=== PATIENT | female | born 1960 | race Two or more races ===

== ENCOUNTER → 2017-02-09 | Outpatient (CLI) | payer MEDICARE, OTHER ==
[2017-02-09 11:05] LABS: CH 29.3; CHCM 31.7; HCT 48.8 % (34.0-46.0); HDW 2.73; MCH 28.6 pg (25.0-35.0); MCHC 30.8 g/dL (31.0-37.0); Mean Platelet Volume 8.6; RBC 5.24 m/uL (3.80-5.40); RDW 13.7 % (11.5-15.5)
[2017-02-09 11:19] LABS: ALT 30 U/L (9-52); AST 27 U/L (14-36); Alkaline Phosphatase 162 U/L (38-126); Anion Gap 12 mmol/L; Blood Urea Nitrogen 15 mg/dL (7-17); Calcium 10.2 mg/dL (8.4-10.2); Carbon Dioxide 19 mmol/L (22-30); Chloride 111 mmol/L (98-107); Cholesterol 186 mg/dL (<200); Glucose 83 mg/dL (74-99); HDL Cholesterol 49 mg/dL (40-60); Non-African American GFR(MDRD) >60 (>60 ml/min/1.73 sqM); Potassium 5.4 mmol/L (3.5-5.1); Sodium 142 mmol/L (137-145); Total Bilirubin 0.5 mg/dL (0.2-1.3); Total Protein 7.8 g/dL (6.3-8.2); Triglycerides 103 mg/dL (<150)
== END | disposition home or self-care (01) ==
LOC: LABWHC1 10:47
PROVIDERS: ATTEND Nurse Practitioner Women's Health
DX: E03.9 Hypothyroidism, unspecified (principal)
CPT/HCPCS: 36415; 80053; 80061; 84443; 85027

== ENCOUNTER → 2017-12-29 | Outpatient (CLI) | payer MEDICARE, OTHER ==
--- NOTE | 2017-12-29 12:49 | US ---
EXAMINATION TYPE: US venous doppler duplex LE RT DATE OF EXAM: 12/29/2017 12:10 PM COMPARISON: NONE CLINICAL HISTORY: I80.9 Phlebitis and thrombophlebitis. SIDE PERFORMED: Right TECHNIQUE: The lower extremity deep venous system is examined utilizing real time linear array sonog maggi with graded compression, doppler sonography and color-flow sonography. VESSELS IMAGED: External Iliac Vein (EIV) Common Femoral Vein Deep Femoral Vein Greater Saphenous Vein * Femoral Vein Popliteal Vein Proximal Calf Veins (* superficial vessels) Right Leg: Negative for DVT IMPRESSION: 1. Right lower extremities negative for deep venous thrombosis.
== END | disposition home or self-care (01) ==
LOC: RADUSWWP 11:11
PROVIDERS: ATTEND Orthopaedic Surgery
DX: I80.9 Phlebitis and thrombophlebitis of unspecified site (principal)

== ENCOUNTER 2018-01-08 10:36 | Day surgery (SDC) | payer MEDICARE, OTHER ==
[2018-01-06 16:16] VITALS: BMI 28.0
[~2018-01-08 10:36] MED LIST: DEXAMETHASONE SOD PHOSPHATE 10 MG/ML 1 ML VIAL IV ONE; LACTATED RINGERS 1,000 ML IV SCH; MIDAZOLAM 2 MG/2 ML VIAL IV PRN; ONDANSETRON 4 MG/2 ML VIAL IVP ONE; SCOPOLAMINE 1.5MG/72HR PATCH TRANSDERM ONE; ceFAZolin IN SWFI 2 GM/20 ML SYRINGE IVP ONE
[2018-01-08] MEDS ORDERED: LIDOCAINE 1% 20 ML VIAL (10MG/ML) FOR IV START INTRADERMA ONE (11:21)
[2018-01-08] MEDS ORDERED: PROPOFOL 10 MG/ML 20 ML VIAL IV ONE (12:13)
[2018-01-08] MEDS ORDERED: fentaNYL (PF) 50 MCG/ML 2 ML AMP ONE (12:13)
[2018-01-08] MEDS ORDERED: LIDOCAINE 1% INJ 10MG/ML (20 ML MDV) ONE (12:13)
[2018-01-08] MEDS ORDERED: GLYCOPYRROLATE 0.2 MG/ML 2 ML VIAL ONE (12:13)
[2018-01-08] MEDS ORDERED: PHENYLEPHRINE-0.9% NACL SYG 1 MG/10 ML SYRINGE ONE (12:13)
[2018-01-08] MEDS ORDERED: MIDAZOLAM 2 MG/2 ML VIAL ONE (12:13)
[2018-01-08] MEDS ORDERED: SUCCINYLCHOLINE CHLORIDE 100 MG/5 ML SYR IV ONE (12:13)
[2018-01-08] MEDS ORDERED: SODIUM CHLORIDE 0.9% 500 ML IV ONE (13:31)
[2018-01-08] MEDS: fentaNYL (PF) 50 MCG/ML 2 ML AMP IV PRN ×2 (14:05→14:36)
--- NOTE | 2018-01-08 14:12 | P.OP ---
Date of Procedure: 01/08/18 Preoperative Diagnosis: 1. 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 History of prior CVA 3. History of prior cigarette smoking Postoperative Diagnosis: Same Procedure(s) Performed: 1. Modified Mills procedure left foot (hallux IP fusion and extensor hallucis longus transfer to the first metatarsal) Anesthesia: IRWIN Surgeon: Kameron Montemayor Emergency Preparedness Coordinator #1: Jordi Shepherd Estimated Blood Loss (ml): 5 IV fluids (ml): 950 Pathology: none sent Condition: stable Disposition: PACU Indications for Procedure: The patient is a very pleasant 57-year-old female with a medical history significant for prior stroke. She developed pain and deformity in her left foot. She had flexible clawing deformities in her hallux and lesser toes. She previously underwent [place] talar flexor to extensor tendon transfers of her second, third, and fourth toes. She did well following this and had significant improvement in her discomfort. She was able to quit smoking and requested surgery on her hallux. She had a flexible extensor clawing deformity of the hallux that made shoe wear difficult. She requested surgery. My recommendation for surgery included a modified Mills procedure which included a hallux IP fusion and extensor hallucis longus transfer to the first metatarsal. We discussed the potential risks and complications of surgery including but not limited to risk of anesthesia, superficial infection, deep infection, delayed wound healing, damage to local blood vessels or nerves, nonunion of the fusion site, malunion of the fusion site, systematic hardware, recurrent deformity, under correction of deformity, overcorrection of deformity, chronic pain, chronic swelling, DVT, PE, risk of generalized to satisfaction with surgery, need for further surgery, and possibly loss of life or limb. The patient voiced her understanding of this and provided her verbal and written consent to go forward with surgery. Description of Procedure: The patient was identified and prepped with holding and the correct left leg was marked with my initials. IV the consent form with the patient and her family. All their questions were answered. The patient was then brought back to the operating room by anesthesia. She was positioned on the OR table where a general anesthetic and preoperative antibiotics were administered. A tourniquet was applied and the proximal aspect of the left leg. A bump was placed under the left leg internally rotating the leg to neutral. The left leg was then prepped and draped in standard sterile fashion. Prior to starting surgery timeout was performed identifying the correct patient, operative extremity, and procedure. The patient's leg was then elevated, exsanguinated with an Esmarch bandage, and the tourniquet was inflated to 250 mmHg. Next I began by outlining an incision over the hallux. A transverse limb was marked out just distal to the hallux IP joint and a longitudinal limb was marked out along the dorsal lateral aspect of the proximal phalanx and distal first metatarsal. Skin incision was made with 15 blade scalpel. Full thickness flap was raised down to the level of the EHL tendon. The EHL tendon was sharply released off of the distal phalanx. The hallux IP joint was then exposed. Using a microsagittal saw a small amount of bone was removed from the proximal and distal phalanx. Both surfaces appeared to be flat allowing a straight fusion. A 3.5 mm drill bit was used to create a path from the base of the distal phalanx out the tip of the toe. A stab incision was made through the skin distally. The toe was held in a reduced position and a 2.5 mm drill bit was used to drill through the tip of the toe, through the previously made drill hole and into the proximal phalanx. A depth gauge was used and then a partially threaded 4.0 mm screw was placed across the fusion site generating excellent compression. A peripherally placed 0.0625 K wire was placed across the joint to provide 2 points of fixation to prevent rotation around the single screw. Clinically the toe appeared straight. Dissection was then carried proximally to the distal first metatarsal shaft. A 2.5 mm drill bit was used to create a drill hole across the distal first metatarsal. The EHL tendon was grasped with a grasping stitch and passed from lateral to medial through the previously made drill hole. Using 3-0 FiberWire the EHL tendon was sutured back onto itself. Final fluoroscopic images were taken. The wound was copiously irrigated. The deep subcutaneous layer was closed with 3-0 Monocryl. The skin was closed using 3-0 nylon horizontal mattress stitches. The tourniquet was let down with a total tourniquet time of 49 minutes. I verified that all instrument, sponge, and sharp counts were correct. A sterile dressing consisting of Betadine soaked Adaptic, 4 x 4, and web roll was applied. A well- padded bulky Mills type splint was placed with the ankle in neutral. The patient was awoken from her anesthetic, transferred from the OR table to the [facility], and brought to PACU having the procedure well. Plan: The patient is going to be nonweightbearing for 2 weeks to allow her incision and fusion to begin healing. She can discharge home as an outpatient. She will follow-up in 2 weeks for x-rays out of the splint, wound check, and transition to a tall boot.
[2018-01-08] MEDS ORDERED: LACTATED RINGERS 1,000 ML IV ONE ×2 (14:23)
[2018-01-08 14:28] VITALS: TEMP 97.8
[2018-01-08] MEDS ORDERED: HYDROcodone/APAP 10-325MG 1 EACH TAB PO ONE (15:29)
--- NOTE | 2018-01-08 15:49 | XR ---
Limited left toe HISTORY: Left great toe fusion 3 Intraoperative C-arm images document the procedure
--- NOTE | 2018-01-08 15:50 | FL ---
Fluoroscopy HISTORY: Great toe fusion 41 seconds fluoroscopy time supplied to the referring clinician. 3 intraoperative C-arm images docum ent the procedure. See dictated report from orthopedic surgery.
[2018-01-08 17:04] VITALS: BP 154/84; PULSE 77; RESP 16
== END 2018-01-08 17:10 | disposition home or self-care (01) ==
LOC: OR 10:36
PROVIDERS: ATTEND Orthopaedic Surgery
DX: M20.5X2 Other deformities of toe(s) (acquired), left foot (principal); M20.22 Hallux rigidus, left foot; I69.354 Hemiplegia and hemiparesis following cerebral infarction affecting left non-dominant side; Z87.891 Personal history of nicotine dependence; M20.42 Other hammer toe(s) (acquired), left foot; G46.4 Cerebellar stroke syndrome; H40.9 Unspecified glaucoma; G43.909 Migraine, unspecified, not intractable, without status migrainosus; K21.9 Gastro-esophageal reflux disease without esophagitis; M19.90 Unspecified osteoarthritis, unspecified site; R42 Dizziness and giddiness; Z88.1 Allergy status to other antibiotic agents; Z79.899 Other long term (current) drug therapy
CPT/HCPCS: 73660; 28760; C1713; J2250; J1100; J2405; J2001; J3010; J2370; J0330; J2704; J0690

== ENCOUNTER → 2018-12-13 | Outpatient (CLI) | payer MEDICARE, OTHER ==
[2018-12-13 08:18] LABS: Basophils # (A) 0.1 k/uL (0-0.2); Basophils % (A) 1 %; Eosinophils # (A) 0.3 k/uL (0-0.7); Eosinophils % (A) 5 %; HCT 45.7 % (34.0-46.0); HGB 14.6 gm/dL (11.4-16.0); Lymphocytes # (A) 2.1 k/uL (1.0-4.8); Lymphocytes % (A) 32 %; MCH 29.4 pg (25.0-35.0); MCV 91.9 fL (80.0-100.0); Mean Platelet Volume 9.2; Monocytes # (A) 0.3 k/uL (0-1.0); Monocytes % (A) 5 %; Neutrophils # (A) 3.6 k/uL (1.3-7.7); Neutrophils % (A) 56 %; Platelet Count 194 k/uL (150-450); RBC 4.97 m/uL (3.80-5.40); RDW 13.9 % (11.5-15.5); WBC 6.4 k/uL (3.8-10.6)
[2018-12-13 11:22] LABS: Albumin 4.1 g/dL (3.80-4.90); Albumin/Globulin Ratio 1.86 (1.60-3.17); Anion Gap 6.8 mmol/L (4.00-12.00); Calcium 9.4 mg/dL (8.7-10.3); Carbon Dioxide 23.2 mmol/L (21.6-31.8); Globulin 2.2 g/dL (1.6-3.3); Potassium 4.6 mmol/L (3.5-5.5); Total Bilirubin 0.3 mg/dL (0.3-1.2); Total Protein 6.3 g/dL (6.2-8.2)
[2018-12-14 04:23] LABS: Hemoglobin A1C 5.1 % (4.0-6.0)
== END | disposition home or self-care (01) ==
LOC: LABWHC1 07:43
PROVIDERS: ATTEND Family Medicine
DX: Z00.00 Encounter for general adult medical examination without abnormal findings (principal); K21.9 Gastro-esophageal reflux disease without esophagitis; E55.9 Vitamin D deficiency, unspecified; E03.9 Hypothyroidism, unspecified; R82.90 Unspecified abnormal findings in urine; R73.03 Prediabetes
CPT/HCPCS: 36415; 80053; 80061; 82306; 83036; 84439; 84443; 85025

== ENCOUNTER → 2019-06-28 | Outpatient (CLI) | payer MEDICARE, OTHER ==
[2019-06-28 12:51] LABS: ALT 32 U/L (9-52); AST 25 U/L (14-36); African American GFR (CKD) >90 (>60 ml/min/1.73 sqM); Albumin 4.3 g/dL (3.5-5.0); Alkaline Phosphatase 183 U/L (38-126); Anion Gap 8 mmol/L; Blood Urea Nitrogen 13 mg/dL (7-17); Calcium 10.4 mg/dL (8.4-10.2); Carbon Dioxide 26 mmol/L (22-30); Chloride 109 mmol/L (98-107); Glucose 88 mg/dL (74-99); Sodium 143 mmol/L (137-145); Total Bilirubin 0.4 mg/dL (0.2-1.3); Total Protein 7.2 g/dL (6.3-8.2)
[2019-06-28 12:53] LABS: INR 0.9 (<1.2); Partial Thromboplastin Time 25.7 sec (22.0-30.0); Prothrombin Time 9.7 sec (9.0-12.0)
[2019-06-28 13:12] LABS: HCT 49.5 % (34.0-46.0); MCH 28.9 pg (25.0-35.0); MCHC 32.4 g/dL (31.0-37.0); MCV 89.1 fL (80.0-100.0); Mean Platelet Volume 9.6; Platelet Count 213 k/uL (150-450); RBC 5.55 m/uL (3.80-5.40); RDW 15.1 % (11.5-15.5); WBC 5.6 k/uL (3.8-10.6)
[2019-06-28 15:44] LABS: Appearance,Urine Clear (Clear); Bilirubin,Urine Negative (Negative); Blood,Urine Negative (Negative); Color,Urine Yellow; Glucose,Urine (UA) Negative (Negative); Ketones,Urine Negative (Negative); Leukocyte Esterase,Urine Moderate (Negative); Mucus,Urine Rare /hpf; Nitrite,Urine Negative (Negative); PH, Urine 5.5 (5.0-8.0); Protein,Urine Negative (Negative); RBC,Urine 1 /hpf (0-5); Specific Gravity,Urine 1.018 (1.001-1.035); Squamous Epithelial Cell,Urine 1 /hpf (0-4); Urobilinogen,Urine <2.0 mg/dL (<2.0); WBC,Urine 3 /hpf (0-5)
== END | disposition home or self-care (01) ==
LOC: LABPAT 11:55
PROVIDERS: ATTEND Orthopaedic Surgery
DX: Z01.812 Encounter for preprocedural laboratory examination (principal)
CPT/HCPCS: 36415; 80053; 81001; 85027; 85610; 85730; 87070

== ENCOUNTER 2019-07-11 11:11 | Observation (INO) | payer MEDICARE, OTHER ==
[2019-07-04 10:58] VITALS: BMI 26.5
[~2019-07-11 11:11] MED LIST changes: -DEXAMETHASONE SOD PHOSPHATE 10 MG/ML 1 ML VIAL IV ONE; -LACTATED RINGERS 1,000 ML IV SCH; +LIDOCAINE 1% 20 ML VIAL (10MG/ML) FOR IV START INTRADERMA PRN; +MELOXICAM 7.5 MG TAB PO ONE; -SCOPOLAMINE 1.5MG/72HR PATCH TRANSDERM ONE; +TRANEXAMIC ACID 1,000 MG in SODIUM CHLORIDE 0.9% 100 ML IVPB ONE; -ceFAZolin IN SWFI 2 GM/20 ML SYRINGE IVP ONE; +fentaNYL (PF) 50 MCG/ML 2 ML AMP IV PRN
[2019-07-11] MEDS: LACTATED RINGERS 1,000 ML IV SCH ×4 (11:31→19:54)
[2019-07-11] MEDS ORDERED: ROPIVACAINE 246.25 MG, EPINEPHrine 0.5 MG, KETOROLAC 30 MG, cloNIDine HCL/PF 80 MCG, WA... MISCELLANE ONE ×5 (11:52)
[2019-07-11] MEDS ORDERED: fentaNYL (PF) 50 MCG/ML 2 ML AMP ONE (12:50)
[2019-07-11] MEDS ORDERED: SODIUM CHLORIDE 0.9% 100 ML BAG ONE (12:50)
[2019-07-11] MEDS ORDERED: TRANEXAMIC ACID 1,000 MG/10 ML VIAL ONE (12:50)
[2019-07-11] MEDS ORDERED: PROPOFOL 10 MG/ML 20 ML VIAL IV ONE (12:50)
[2019-07-11] MEDS ORDERED: MIDAZOLAM 2 MG/2 ML VIAL ONE (12:50)
[2019-07-11] MEDS ORDERED: ceFAZolin 3,000 MG in SODIUM CHLORIDE 0.9% IRRIGATIO 3,000 ML IRRIGATION ONE (13:26)
[2019-07-11] MEDS ORDERED: LACTATED RINGERS 1,000 ML IV ONE (14:39)
[2019-07-11] MEDS ORDERED: NALOXONE 0.4 MG/ML 1 ML VIAL IV PRN (15:03)
[2019-07-11] MEDS ORDERED: MAGNESIUM HYDROXIDE 2,400 MG/10 ML CUP PO PRN (15:03)
[2019-07-11] MEDS ORDERED: ONDANSETRON 4 MG/2 ML VIAL IVP PRN (15:03)
[2019-07-11] MEDS ORDERED: NA PHOS,M-B/NA PHOS,DI-BA 133 ML ENEMA RECTAL PRN (15:03)
[2019-07-11] MEDS ORDERED: BISACODYL 10 MG SUPP RECTAL PRN (15:03)
[2019-07-11] MEDS ORDERED: HYDROmorphone 1 MG/ML 1 ML SYRINGE IVP PRN (15:03)
[2019-07-11] MEDS ORDERED: HYDROcodone/APAP 5-325MG 1 EACH TAB PO PRN (15:03)
--- NOTE | 2019-07-11 16:09 | XR ---
EXAMINATION TYPE: XR knee limited RT DATE OF EXAM: 07/11/2019 COMPARISON: NONE HISTORY: 59-year-old female evaluation for postoperative abnormality and alignment TECHNIQUE: 2 views FINDINGS: Images show placement of medial unicompartmental arthroplasty. Both distal femoral and proximal tibia l components of the prosthesis appear well seated without periprosthetic fracture. Alignment grossly anatomic. Extensor mechanism intact. Anterior soft tissue air as well as intra-articular air in joint fluid related to recent operation. IMPRESSION: Uncomplicated postoperative appearance medial unicompartmental arthroplasty.
[2019-07-11] MEDS ORDERED: diphenhydrAMINE 50 MG/ML 1 ML VIAL IVP ONE (16:25)
[2019-07-11] MEDS ORDERED: ROPIVACAINE 0.2%-NS ON-Q PUMP 1,090 MG, EMPTY PAIN BALL 1 EACH MISCELLANE PRN (16:27)
--- NOTE | 2019-07-11 16:29 | P.ANPRN ---
Procedure Note - Anesthesia - Nerve Block Performed Right Adductor Canal Infusion Time Out Performed: Yes Date of Procedure: 07/11/19 Procedure Start Time: 15:54 Location of Patient Procedure: PACU Indication: Acute Post-Operative Pain, Requested by Surgeon Specifically requested for management of pain by DrMoriah: Rubens Redman Sedation Type: Sedate with meaningful contact maintained Preparation: Sterile Prep Position: Supine Catheter Depth at Skin (cm): 7 Catheter: Indwelling Needle Types: Pajunk Needle Gauge: 18 Ultrasound used to visualize needle placement: Yes Ultrasound used to observe medication spread: Yes Injectate: 0.5% Ropivacaine (see comment for volume) (20cc) Blood Aspirated: No Pain Paresthesia on Injection Noted: No Resistance on Injection: Normal Image Stored and Saved: Yes Events: Uneventful and Well Tolerated
[2019-07-11] MEDS: HYDROmorphone 0.5 MG/0.5 ML SYRINGE IVP PRN ×2 (17:54→21:10)
[2019-07-11] MEDS: ASPIRIN 325 MG TAB PO SCH (21:10)
[2019-07-11] MEDS: SENNOSIDES-DOCUSATE SODIUM 1 EACH TAB PO SCH (21:10)
[2019-07-12] MEDS: HYDROmorphone 0.5 MG/0.5 ML SYRINGE IVP PRN ×6 (00:37→21:09)
[2019-07-12] MEDS: LACTATED RINGERS 1,000 ML IV SCH (01:14)
--- NOTE | 2019-07-12 07:13 | P.PN ---
Progress Note - Text 07/12 658am 59-year-old female status post knee replacement by Dr. Redman. Patient has an On-Q pump for postop pain control with the solution running at 8 mL an hour and she has a VAS of 4. Plan to continue On-Q pump infusion
[2019-07-12 07:27] LABS: Basophils % (A) 1 %; Eosinophils # (A) 0.2 k/uL (0-0.7); Eosinophils % (A) 2 %; HGB 13.1 gm/dL (11.4-16.0); Lymphocytes # (A) 1.5 k/uL (1.0-4.8); Lymphocytes % (A) 23 %; MCH 28.9 pg (25.0-35.0); MCHC 32.6 g/dL (31.0-37.0); MCV 88.5 fL (80.0-100.0); Mean Platelet Volume 9.4; Monocytes # (A) 0.4 k/uL (0-1.0); Monocytes % (A) 6 %; Neutrophils # (A) 4.5 k/uL (1.3-7.7); Neutrophils % (A) 66 %; Platelet Count 160 k/uL (150-450); RBC 4.52 m/uL (3.80-5.40); RDW 13.8 % (11.5-15.5); WBC 6.8 k/uL (3.8-10.6)
[2019-07-12] MEDS: HYDROcodone/APAP 5-325MG 1 EACH TAB PO PRN ×3 (07:30→20:07)
[2019-07-12] MEDS: MELOXICAM 7.5 MG TAB PO SCH (07:30)
[2019-07-12] MEDS: ASPIRIN 325 MG TAB PO SCH ×2 (07:30→20:07)
--- NOTE | 2019-07-12 09:56 | P.PN ---
Subjective Progress Note Date: 07/12/19 Principal diagnosis: Degenerative arthritis right knee. Status post total right knee arthroplasty. This is a 59-year-old female who is status post total right knee arthroplasty. She is doing well from orthopedic standpoint. She has no new complaints or concerns today. She states that she would like an extra day for physical therapy and states that her has to work this afternoon and will not be home. Objective - Vital Signs Vital signs: Vital Signs Temp 98.1 F 07/12/19 07:34 Pulse 65 07/12/19 07:34 Resp 16 07/12/19 07:34 BP 168/94 07/12/19 07:34 Pulse Ox 96 07/12/19 07:34 Intake & Output 07/11/19 07/12/19 07/12/19 18:59 06:59 18:59 Intake Total 1351 500 240 Output Total 25 300 200 Balance 1326 200 40 Weight 68.039 kg Intake: IV 1351 Oral 500 240 Output: Urine 300 200 Estimated Blood Loss 25 Other: Voiding Method Bedside Commode Bedpan # Voids 1 1 - Exam This is a pleasant 59-year-old female in no acute distress. She is alert and oriented 3. Exam of the right knee reveals that the dressing is clean, dry and intact. She has full foot and ankle motion without difficulty or pain. No Pain with palpation. Neurovascular status to the lower extremity is intact. - Labs CBC & Chem 7: 07/12/19 06:19 Assessment and Plan (1) Osteoarthritis of right knee Current Visit: Yes Status: Acute Code(s): M17.11 - UNILATERAL PRIMARY OSTEOARTHRITIS, RIGHT KNEE SNOMED Code(s): 284075811922483 (2) Status post total right knee replacement Current Visit: Yes Status: Acute Code(s): Z96.651 - PRESENCE OF RIGHT ARTIFICIAL KNEE JOINT SNOMED Code(s): 6396980943615 (3) At risk for falls Current Visit: No Status: Acute Code(s): Z91.81 - HISTORY OF FALLING SNOMED Code(s): 055198324 Plan: The clinical findings are discussed the patient. With her history of stroke affecting the left side, she is at risk for falls postoperatively. We'll keep her here until tomorrow for further physical therapy and pain management. Plan discharged to home tomorrow if cleared medically.
[2019-07-12] MEDS ORDERED: PANTOPRAZOLE 40 MG TABLET PO PRN (14:01)
[2019-07-12] MEDS ORDERED: MECLIZINE 25 MG TAB PO PRN (14:18)
--- NOTE | 2019-07-12 14:21 | P.CONS ---
History of Present Illness - Reason for Consult Consult date: 07/12/19 Medical management gastroesophageal reflux disease, CAD, hypothyroidism Requesting physician: Rubens Redman - Chief Complaint Right knee osteoarthritis, failed outpatient treatment - History of Present Illness This is a 59-year-old female with history of CVA/TIA, glaucoma, gastroesophageal reflux disease, osteoarthritis, hypothyroidism, brain aneurysm, former smoker, osteoarthritis and multiple medical issues, status post total right knee arthroplasty. Tolerated procedure well. Pain controlled with pain pump intact. Has not yet been out of bed with physical therapy, pending. Patient has residual left-sided weakness secondary to stroke, fall risk. Passing flatus, no bowel movement. Tolerating diet with no nausea vomiting or diarrhea. Denies chest pain, palpitations or shortness of breath. Denies lightheadedness dizziness or focal deficits. Vital signs stable. Maintaining O2 sats in the 90s on room air. Afebrile. Review of Systems ROS Statement: Those systems with pertinent positive or pertinent negative responses have been documented in the HPI. ROS Other: All systems not noted in ROS Statement are negative. Past Medical History Past Medical History: CVA/TIA, Eye Disorder, GERD/Reflux, Myocardial Infarction (TN), Neurologic Disorder, Osteoarthritis (OA), Thyroid Disorder Additional Past Medical History / Comment(s): GLAUCOMA, vertigo @times, frequent headaches, stroke 2013 that affected left side-drags left foot when tired, ?TN- not sure when,says EKG shows she had one @some point, CEREBRAL ANEURYSM, Last Myocardial Infarction Date:: 2007 -UNKNOWN DATE FOR SURE /EKG History of Any Multi-Drug Resistant Organisms: None Reported Past Surgical History: Hysterectomy, Orthopedic Surgery, Tonsillectomy Additional Past Surgical History / Comment(s): Brain aneurysm repair, julian shoulder & knee arthroscopies,colonoscopy,. BILAT LASER EYE SURGERY, LEFT GREAT TOE AND TOE NEXT TO IT, Past Anesthesia/Blood Transfusion Reactions: Previous Problems w/ Anesthesia, Motion Sickness Additional Past Anesthesia/Blood Transfusion Reaction / Comm: woke up gasping for air in recovery after last toe/foot surg-has never had any problems before Past Psychological History: No Psychological Hx Reported Smoking Status: Former smoker Past Alcohol Use History: Rare Additional Past Alcohol Use History / Comment(s): STARTED SMOKING AT AGE 28 , SMOKED pack every 2 weeks QUIT 2017 Past Drug Use History: None Reported - Past Family History Father Family Medical History: Coronary Artery Disease (CAD), Myocardial Infarction (TN) Brother(s) Family Medical History: Coronary Artery Disease (CAD), CVA/TIA Medications and Allergies Home Medications Medication Instructions Recorded Confirmed Type Meclizine [Antivert] 25 mg PO BID PRN 01/06/18 07/11/19 History Omeprazole [PriLOSEC] 20 mg PO AC-BID PRN 01/06/18 07/11/19 History Cholecalciferol [Vitamin D3 (25 1,000 unit PO DAILY 07/04/19 07/11/19 History Mcg = 1000 Iu)] Levothyroxine Sodium [Synthroid] 50 mcg PO DAILY 07/04/19 07/11/19 History Aspirin 325 mg PO BID #60 tab 07/11/19 Rx HYDROcodone/APAP 5-325MG [[place] 1 - 2 each PO Q4-6H PRN #50 tab 07/11/19 Rx 5-325] Sennosides-Docusate Sodium 1 tab PO BID #60 tablet 07/11/19 Rx [Senokot-S] Allergies Allergy/AdvReac Type Severity Reaction Status Date / Time tetracycline [Tetracycline] Allergy Unknown Anaphylaxis Verified 07/11/19 11:22 cortisone Allergy Rash/Hives Verified 07/11/19 11:22 Physical Exam Vitals: Vital Signs Temp Pulse Resp BP Pulse Ox 07/12/19 07:34 98.1 F 65 16 168/94 96 07/12/19 01:16 98.5 F 64 18 126/79 96 07/11/19 19:05 98.1 F 64 18 146/89 100 07/11/19 17:43 97.7 F 62 18 137/68 98 07/11/19 16:45 52 L 16 118/64 96 07/11/19 16:31 55 L 16 128/71 97 07/11/19 16:16 52 L 16 123/65 99 07/11/19 16:01 52 L 16 126/77 98 07/11/19 15:46 53 L 16 124/67 99 07/11/19 15:31 51 L 16 127/66 94 L 07/11/19 15:16 53 L 16 119/68 99 07/11/19 15:01 97.8 F 54 L 15 118/64 99 Intake and Output 07/11/19 07/12/19 07/12/19 22:59 06:59 14:59 Intake Total 800 240 Output Total 300 200 Balance 800 -300 40 Intake: IV 300 Oral 500 240 Output: Urine 300 200 Other: Voiding Method Bedside Commode Bedpan # Voids 1 1 1 PHYSICAL EXAM: VITAL SIGNS: [As above] GENERAL: Sitting up in bed, no acute distress HEENT: Conjunctivae normal. eyes normal. Oral mucosa moist NECK: No JVD. No thyroid enlargement. No LNs CARDIOVASCULAR: S1, S2 regular.. No murmur RESPIRATION: Breath sounds diminished in the bases. No rhonchi or crackles. No bronchial breathing. ABDOMEN: Soft, nontender . No guarding. no masses palpable. No ascites, No hepatosplenomegaly.Bowel sounds heard. LEGS: Decreased edema of right lower extremity, dressing clean dry and intact, positive pulses, PSYCHIATRY: Alert and oriented X3, mood and affect normal. NERVOUS SYSTEM: Cranial N 2-12 grossly normal. Moves all 4 limbs. Residual left-sided weakness secondary to stroke, no gross focal deficits. strength and sensation grossly intact. Skin: no lesions, no rash Lymphatic system. No LN neck axilla. Results CBC & Chem 7: 07/12/19 06:19 Assessment and Plan Assessment: -Right knee osteoarthritis, failed outpatient treatment, status post total right knee replacement -Residual left-sided weakness secondary to stroke, fall risk -Protocol -History of CVA/TIA -Gastroesophageal reflux disease -CAD, history of [place] -Glaucoma -History of nicotine dependence -History of brain aneurysm repair Plan: Continue current medication regime ,monitoring and symptomatic treatment. Home meds have been reviewed and resumed accordingly. GI prophylaxis in place. Pain management/anticoagulation as per orthopedic surgery. Aggressive pulmonary toileting with incentive spirometer reinforced. PT/OT. Discharge planning in progress for tomorrow as per orthopedics. Thank you Dr. Redman for the consult. The impression and plan of care has been dictated as directed. : I performed a history and examination of this patient, discussed the same with the dictator. I agree with the dictator's note ,documented as a scribe. Any additional findings or plans will be noted. Time Taken: 35 min.
[2019-07-12] MEDS: SENNOSIDES-DOCUSATE SODIUM 1 EACH TAB PO SCH (20:07)
[2019-07-13] MEDS: HYDROcodone/APAP 5-325MG 1 EACH TAB PO PRN (02:45)
[2019-07-13] MEDS ORDERED: LEVOTHYROXINE 50 MCG TAB PO SCH (06:30)
[2019-07-13] MEDS: HYDROmorphone 0.5 MG/0.5 ML SYRINGE IVP PRN (07:25)
[2019-07-13] MEDS: MELOXICAM 7.5 MG TAB PO SCH (07:27)
[2019-07-13] MEDS: ASPIRIN 325 MG TAB PO SCH (07:27)
[2019-07-13] MEDS ORDERED: HYDROcodone/APAP 7.5-325MG 1 EACH TAB PO PRN ×2 (07:29)
--- NOTE | 2019-07-13 08:04 | P.DS ---
Providers Date of admission: 07/12/19 04:55 Expected date of discharge: 07/13/19 Attending physician: Rubens Redman Consults: 07/11/19 15:03 Consult Physician Routine Consulting Provider: José Miguel Buckley Reason/Comments: medical management Do you want consulting provider notified?: Yes Primary care physician: José Miguel Buckley - Discharge Diagnosis(es) (1) Osteoarthritis of right knee Current Visit: Yes Status: Acute (2) Status post total right knee replacement Current Visit: Yes Status: Acute (3) At risk for falls Current Visit: No Status: Acute Hospital Course: This is a 59-year-old female who was last seen with complaint of continued right knee pain. The patient has a known history of degenerative arthritis of the right knee and presents to discuss surgical options. After discussion and consideration the patient elects to proceed with total right knee arthroplasty. The patient is seen preoperatively by Dr. Buckley and cleared for surgery. The patient is admitted to [facility] for total right knee arthroplasty. The procedures performed without complication or sequelae. Patient is doing well postoperatively. Vital signs are stable at discharge. Labs are stable at discharge. the patient is ambulating well with walker with minimal assistance. The patient is discharged to home on postop day #2 pending medical clearance. Please see orders and refer to the med rec for accurate list of medications. Plan - Discharge Summary Discharge Rx Participant: Yes New Discharge Prescriptions: New Aspirin 325 mg PO BID #60 tab Sennosides-Docusate Sodium [Senokot-S] 1 tab PO BID #60 tablet HYDROcodone/APAP 7.5-325MG [[place] 7.5-325] 1 - 2 tab PO Q4-6H PRN #50 tab PRN Reason: Pain No Action Omeprazole [PriLOSEC] 20 mg PO AC-BID PRN PRN Reason: Heartburn Meclizine [Antivert] 25 mg PO BID PRN PRN Reason: Vertigo Cholecalciferol [Vitamin D3 (25 Mcg = 1000 Iu)] 1,000 unit PO DAILY Levothyroxine Sodium [Synthroid] 50 mcg PO DAILY Discharge Medication List Meclizine [Antivert] 25 mg PO BID PRN 01/06/18 [History] Omeprazole [PriLOSEC] 20 mg PO AC-BID PRN 01/06/18 [History] Cholecalciferol [Vitamin D3 (25 Mcg = 1000 Iu)] 1,000 unit PO DAILY 07/04/19 [History] Levothyroxine Sodium [Synthroid] 50 mcg PO DAILY 07/04/19 [History] Aspirin 325 mg PO BID #60 tab 07/11/19 [Rx] Sennosides-Docusate Sodium [Senokot-S] 1 tab PO BID #60 tablet 07/11/19 [Rx] HYDROcodone/APAP 7.5-325MG [[place] 7.5-325] 1 - 2 tab PO Q4-6H PRN #50 tab 07/13/19 [Rx] Follow up Appointment(s)/Referral(s): Emma Mayo, RACH [PHYSICIAN STORE CASHIER] - 07/27/19 2:15 pm [facility] [facility], [NON-STAFF] - Activity/Diet/Wound Care/Special Instructions: May bear weight as tolerated with walker. May shower if no drainage 48h post op. Discharge Disposition: HOME WITH HOME HEALTH SERVICES
--- NOTE | 2019-07-13 08:16 | P.PN ---
Progress Note - Text Progress Note Date: 07/13/19 Patient anxious and complaining of pain. Pain severe when pain medications wear off, but tolerable if she takes the [place] and dilaudid. Pt unable to point to where the pain is worse. VSS Right adductor catheter site c/d A/P POD#2 s/p R TKA - Repeat adductor canal and iPACK blocks offered for pain control, but pt declined. - Continue R Adductor catheter and breakthrough meds - increase catheter dose to 12 ml/hr
[2019-07-13 08:50] VITALS: BP 140/79; PULSE 70; RESP 16; TEMP 97.9
--- NOTE | 2019-07-13 14:39 | P.PN ---
Subjective Progress Note Date: 07/13/19 This is a 59-year-old female with history of CVA/TIA, glaucoma, gastroesophageal reflux disease, osteoarthritis, hypothyroidism, brain aneurysm, former smoker, osteoarthritis and multiple medical issues, status post total right knee arthroplasty. Tolerated procedure well. Pain controlled with pain pump intact. Has not yet been out of bed with physical therapy, pending. Patient has residual left-sided weakness secondary to stroke, fall risk. Passing flatus, no bowel movement. Tolerating diet with no nausea vomiting or diarrhea. Denies chest pain, palpitations or shortness of breath. Denies lightheadedness dizziness or focal deficits. Vital signs stable. Maintaining O2 sats in the 90s on room air. Afebrile. 07/13/2019 pain pump discontinued, ambulating with walker to bathroom. Pain bet ter controlled currently. Scheduled to do stairs with PT this morning, pending. Vital signs stable. Denies chest pain, palpitations or shortness of breath. Denies lightheadedness dizziness or focal deficits. Denies nausea vomiting or diarrhea. Passing flatus. Objective - Vital Signs Vital signs: Vital Signs Temp 97.9 F 07/13/19 07:00 Pulse 70 07/13/19 07:00 Resp 16 07/13/19 07:00 BP 140/79 07/13/19 07:00 Pulse Ox 93 L 07/13/19 07:00 Intake & Output 07/12/19 07/13/19 07/13/19 18:59 06:59 18:59 Intake Total 240 250 Output Total 200 Balance 40 250 Intake: Oral 240 250 Output: Urine 200 Other: Voiding Method Bedpan Bedpan # Voids 2 2 - Exam VITAL SIGNS: [As above] GENERAL: Sitting up in bed, no acute distress HEENT: Conjunctivae normal. eyes normal. Oral mucosa moist NECK: No JVD. No thyroid enlargement. No LNs CARDIOVASCULAR: S1, S2 regular.. No murmur RESPIRATION: Breath sounds diminished in the bases. No rhonchi or crackles. No bronchial breathing. ABDOMEN: Soft, nontender . No guarding. no masses palpable. No ascites, No hepatosplenomegaly.Bowel sounds heard. LEGS: Decreased edema of right lower extremity, dressing clean dry and intact, positive pulses, PSYCHIATRY: Alert and oriented X3, mood and affect normal. NERVOUS SYSTEM: Cranial N 2-12 grossly normal. Moves all 4 limbs. Residual lef t-sided weakness secondary to stroke, no gross focal deficits. strength and sensation grossly intact. Skin: no lesions, no rash Lymphatic system. No LN neck axilla. - Labs CBC & Chem 7: 07/12/19 06:19 Assessment and Plan Assessment: -Right knee osteoarthritis, failed outpatient treatment, status post total right knee replacement -Residual left-sided weakness secondary to stroke, fall risk -Protocol -History of CVA/TIA -Gastroesophageal reflux disease -CAD, history of [place] -Glaucoma -History of nicotine dependence -History of brain aneurysm repair Plan: Continue current medication regime ,monitoring and symptomatic treatment. Eager for discharge, getting ready to do stairs with physical therapy. Pain management/anticoagulation as per orthopedic surgery. Aggressive pulmonary toileting with incentive spirometer reinforced. Discharge planning being discussed for today as per her orthopedics. Thank you Dr. Redman for the consult. Follow-up with PCP in one week. The impression and plan of care has been dictated as directed. : I performed a history and examination of this patient, discussed the same with the dictator. I agree with the dictator's note ,documented as a scribe. Any additional findings or plans will be noted. Time Taken: 35 min.
--- NOTE | 2019-07-27 14:27 | P.OP ---
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 AUCTION BLOCK CLERK: Emma House PA-C (assistance with: patient positioning, retraction, exposure, hemostasis, leg positioning, implantation, irrigation, closure, dressing) COMPLICATIONS: None apparent. COMPONENTS IMPLANTED: Jose unicompartmental knee system from [employer] INDICATIONS: Adriana is a 59 year old female with a history of right knee unicompartmental medial osteoarthritis. Conservative management has failed. She has a mild degree of arthritis involving the patellofemoral and lateral compartments. The operation of medial unicompartmental knee replacement has been discussed at length in the office, as well as potential risks and complications. These are inclusive of, but not limited to: bleeding, infection, scarring, discomfort, blood vessel and nerve damage, need for further surgery, failure to relieve symptoms, persistence, recurrence, or worsening of problems, loosening, dislocation, wear, blood clot, pulmonary embolism, , gait dysfunction, stiffness, and other risks as discussed in the office. The patient elects to proceed and the consent form has been signed. PROCEDURE: The patient was taken to the operating room and positioned on the operating room table in the supine position. Anesthesia was initiated. Care was taken to make sure that all pressure points were adequately padded. The operative lower extremity was prepped and draped in the usual aseptic fashion using ChloraPrep. Ioban drape was used for the case and the patient received intravenous antibiotics within one hour of the incision. A pneumotourniquet and leg giordano were used for the case. The limb was exsanguinated with an Esmarch bandage and the tourniquet was inflated to 350 mmHg. Time-out was called confirming the patient's identity, side, procedure and administration of antibiotics and tranexamic acid. The incision was then created over the medial aspect of the knee from approximately the superior pole of the patella down to adjacent to the tibial tubercle. Incision was carried down through skin and into subcutaneous tissues and sharp dissection was carried down to fascia. Hemostasis was obtained using electrocautery. Medial parapatellar arthrotomy was performed from approximately the level of the VMO to just below the tibial surface. Partial fat pad was resected and due to the previous surgeries this patient has had, the fat pad was somewhat scarred. These adhesions within the fat pad were released using cautery. This allowed better patellar mobilization. Excellent visualization of the medial compartment was accomplished. Retractors were placed within the notch and the medial condyle. Careful release of the anterior medial soft tissues from bone was accomplished using sharp dissection. This was carried to but not into the medial collateral ligament. Tibial cut was performed first. The guide for the tibial cut was attached to the patient's lower extremity and the guide was placed against the bone. The boom of the guide was placed parallel to the palpable anterior surface of the tibia and arranged to be in line with the second metatarsal area the cut was planned to be exactly adjacent to the notch region of the medial femoral condyle. It should be noted that the patient's ACL and PCL were intact and no rmal in appearance. The depth of resection was set using the 4 mm guide. The guide was then pinned into position and the cut was created using an oscillating saw along with a reciprocating saw for the sagittal cut. The tibial fragment was then removed and the surface finished. Medial meniscus remnant was removed at this time. Next, the knee was placed into full extension and various spacers were placed in the medial compartment to assess the distance. The size 10 mm spacer was selected and a guide was placed onto this spacer and the guide was held into place on the femur with a headed pin. The distal femoral cut was then created through this guide and the fragment was removed. Flexion and extension gaps were then assessed and found to be satisfactory. The knee was then bent to 90 retractors were placed and the guide for femoral finishing was placed. Femur was finished using this guide. Next, tibia was sized and finished and the trial component was left in place. Femoral trial component was placed, and 10 mm spacer was utilized for trial. Excellent range of motion, stability, and alignment were noted. The trial components were then removed and the femoral and tibial surfaces were pulse lavaged and dried for cementing. Cement was mixed on the back table and applied to the final components. Cement was also pressurized into the bone with finger pressurization technique. Final components were then impacted into place and excess cement was removed. The 10 mm trial spacer was laced during this process. Axial force was applied to the leg during the curing process of the cement. Once the cement had fully hardened, excess cement was further removed, and the knee was assessed for range of motion stability and alignment based on the thickness of the planned polyethylene spacer. The 10 mm spacer was called for and implanted. Final range of motion and stability check was satisfactory. The tourniquet was deflated and hemostasis was obtained with electrocautery, another gram of tranexamic acid, and bone wax. Closure was performed of the fascia using a combination of #2 Ethibond suture as well as a running strata fix suture. Subcu closure was performed with 2-0 Vicryl suture in interrupted fashion followed by strata fix suture in running subcuticular fashion for the skin and Exofin topical dressing. A lightly compressive dressing was applied using Webril and an [place] wrap. The patient was then transferred to stretcher and taken to the recovery room in stable condition. Sponge and needle counts were correct.
== END 2019-07-13 10:01 | disposition home health service (06) ==
LOC: OR 11:11 → 4SSUR 15:01 → OR 07-12 04:10 → 4SSUR 07-12 04:55
PROVIDERS: ADMIT Orthopaedic Surgery; ATTEND Orthopaedic Surgery
DX: M17.11 Unilateral primary osteoarthritis, right knee (principal); M21.169 Varus deformity, not elsewhere classified, unspecified knee; I69.354 Hemiplegia and hemiparesis following cerebral infarction affecting left non-dominant side; I25.10 Atherosclerotic heart disease of native coronary artery without angina pectoris; H40.9 Unspecified glaucoma; G43.909 Migraine, unspecified, not intractable, without status migrainosus; R26.9 Unspecified abnormalities of gait and mobility; I67.9 Cerebrovascular disease, unspecified; K21.9 Gastro-esophageal reflux disease without esophagitis; E03.9 Hypothyroidism, unspecified; Z79.890 Hormone replacement therapy; Z79.899 Other long term (current) drug therapy; Z88.1 Allergy status to other antibiotic agents; Z88.8 Allergy status to other drugs, medicaments and biological substances; Z91.81 History of falling; Z90.710 Acquired absence of both cervix and uterus; Z87.891 Personal history of nicotine dependence; Z86.79 Personal history of other diseases of the circulatory system; I25.2 Old myocardial infarction; Z82.49 Family history of ischemic heart disease and other diseases of the circulatory system; Z82.3 Family history of stroke
CPT/HCPCS: 27446; 97116 ×2; 97161; 97530; 97535; 97166; 64448; 76942; 85025; 88300; 73560; G0378 ×2; C1713; C1776; J2250; J0171; J1200; J0690 ×3; J2405; J3010; J1885; J2795; J2704; J0735; J1170 ×3

== ENCOUNTER → 2020-04-16 | Outpatient (CLI) | payer MEDICARE, OTHER | END | disposition home or self-care (01) | LOC: LABWHC1 10:04 | PROVIDERS: ATTEND Family Medicine | DX: Z20.828 Contact with and (suspected) exposure to other viral communicable diseases (principal) ==

== ENCOUNTER → 2020-07-18 | Outpatient (CLI) | payer MEDICARE, OTHER ==
[2020-07-18 16:18] LABS: Appearance,Urine Cloudy (Clear); Bilirubin,Urine Negative (Negative); Blood,Urine Negative (Negative); Calcium Oxalate Crystals,Urine Many /hpf; Color,Urine Yellow; Glucose,Urine (UA) Negative (Negative); Ketones,Urine Negative (Negative); Leukocyte Esterase,Urine Trace (Negative); Mucus,Urine Many /hpf; Nitrite,Urine Negative (Negative); Protein,Urine Trace (Negative); RBC,Urine 1 /hpf (0-5); Specific Gravity,Urine 1.025 (1.001-1.035); Squamous Epithelial Cell,Urine 2 /hpf (0-4); Urobilinogen,Urine <2.0 mg/dL (<2.0); WBC,Urine 5 /hpf (0-5)
[2020-07-18 16:52] LABS: HGB 15.6 gm/dL (11.4-16.0); MCH 27.8 pg (25.0-35.0); MCHC 31.2 g/dL (31.0-37.0); MCV 89.2 fL (80.0-100.0); Mean Platelet Volume 9.5; Platelet Count 218 k/uL (150-450); WBC 6.8 k/uL (3.8-10.6)
[2020-07-18 16:59] LABS: ALT 25 U/L (4-34); AST 29 U/L (14-36); African American GFR (CKD) >90 (>60 ml/min/1.73 sqM); Albumin 4.3 g/dL (3.5-5.0); Alkaline Phosphatase 179 U/L (38-126); Anion Gap 8 mmol/L; Blood Urea Nitrogen 12 mg/dL (7-17); Calcium 10.1 mg/dL (8.4-10.2); Carbon Dioxide 23 mmol/L (22-30); Chloride 109 mmol/L (98-107); Glucose 90 mg/dL (74-99); Non-African American GFR(CKD) >90 (>60 ml/min/1.73 sqM); Potassium 4.2 mmol/L (3.5-5.1); Sodium 140 mmol/L (137-145); Total Bilirubin 0.3 mg/dL (0.2-1.3); Total Protein 7.2 g/dL (6.3-8.2)
[2020-07-18 17:03] LABS: INR 0.9 (<1.2); Partial Thromboplastin Time 24.3 sec (22.0-30.0); Prothrombin Time 9.6 sec (9.0-12.0)
== END | disposition home or self-care (01) ==
LOC: LABPAT 15:28
PROVIDERS: ATTEND Orthopaedic Surgery
DX: Z01.818 Encounter for other preprocedural examination (principal); Z01.812 Encounter for preprocedural laboratory examination
CPT/HCPCS: 36415; 80053; 81001; 85027; 85610; 85730; 87070; 93005

== ENCOUNTER 2020-07-23 10:50 | Day surgery (SDC) | payer MEDICARE, OTHER ==
[2020-07-17 15:04] VITALS: BMI 27.4
[~2020-07-23 10:50] MED LIST changes: +HYDROmorphone 0.5 MG/0.5 ML SYRINGE IVP PRN; +LIDOCAINE 1% (10MG/ML) FOR IV START INTRADERMA PRN; -LIDOCAINE 1% 20 ML VIAL (10MG/ML) FOR IV START INTRADERMA PRN; -MELOXICAM 7.5 MG TAB PO ONE; +ROPIVACAINE 246.25 MG, EPINEPHrine 0.5 MG, KETOROLAC 30 MG, cloNIDine HCL/PF 80 MCG, WA... MISCELLANE ONE; -fentaNYL (PF) 50 MCG/ML 2 ML AMP IV PRN
[2020-07-23] MEDS: LACTATED RINGERS 1,000 ML IV SCH ×3 (11:43→17:53)
[2020-07-23] MEDS: ACETAMINOPHEN TAB 500 MG TAB PO ONE ×2 (11:50→17:52)
[2020-07-23] MEDS: MELOXICAM 7.5 MG TAB PO ONE ×2 (11:51→17:52)
[2020-07-23] MEDS: ONDANSETRON 4 MG/2 ML VIAL IVP ONE ×2 (11:51→17:52)
[2020-07-23] MEDS ORDERED: MIDAZOLAM 2 MG/2 ML VIAL IVP ONE (12:06)
[2020-07-23] MEDS ORDERED: ROPIVACAINE 0.2%-NS ON-Q PUMP 1,090 MG, EMPTY PAIN BALL 1 EACH MISCELLANE PRN (12:32)
[2020-07-23] MEDS ORDERED: SODIUM CHLORIDE 0.9% 100 ML BAG ONE (12:34)
[2020-07-23] MEDS ORDERED: TRANEXAMIC ACID 1,000 MG/10 ML VIAL ONE (12:34)
[2020-07-23] MEDS ORDERED: fentaNYL (PF) 50 MCG/ML 2 ML AMP ONE (12:34)
[2020-07-23] MEDS ORDERED: MIDAZOLAM 2 MG/2 ML VIAL ONE (12:34)
[2020-07-23] MEDS ORDERED: PROPOFOL 10 MG/ML 20 ML VIAL IV ONE (12:34)
[2020-07-23] MEDS ORDERED: ceFAZolin 3,000 MG in SODIUM CHLORIDE 0.9% IRRIGATIO 3,000 ML IRRIGATION ONE (13:16)
--- NOTE | 2020-07-23 14:16 | P.OP ---
Date of Procedure: 07/23/20 Procedure(s) Performed: PREOPERATIVE DIAGNOSIS: Left knee severe osteoarthritis POSTOPERATIVE DIAGNOSIS: Left knee severe osteoarthritis OPERATION: Left knee cemented total replacement arthroplasty. ANESTHESIA: Spinal ESTIMATED BLOOD LOSS: 50 ml. HUMAN RESOURCES RECEPTIONIST: Emma Mayo PA-C (assistance with: patient positioning, retraction, exposure, hemostasis, leg positioning, implantation, irrigation, closure, dressing) COMPLICATIONS: None apparent. COMPONENTS IMPLANTED: Persona system from [employer] INDICATIONS: Adriana is a 60 year old female with a history of left knee osteoarthritis. Conservative treatment has been tried and has been unsuccessful in controlling symptoms adequately. The operation of knee replacement has been discussed at length in the office, as well as potential risks and complications. These are inclusive of, but not limited to: bleeding, infection, scarring, discomfort, blood vessel and nerve damage, need for further surgery, failure to relieve symptoms, persistence, recurrence, or worsening of problems, loosening, dislocation, wear, blood clot, pulmonary embolism, , gait dysfunction, stiffness, and other risks as discussed in the office. The patient elects to proceed and the consent form has been signed. PROCEDURE: The patient was taken to the operating room and positioned on the operating room table in the supine position. Anesthesia was initiated. Care was taken to make sure that all pressure points were adequately padded. The operative lower extremity was prepped and draped in the usual aseptic fashion using ChloraPrep. Ioban drape was used for the case and the patient received intravenous antibiotics within one hour of the incision. A pneumotourniquet and leg giordano were used for the case. The limb was exsanguinated with an Esmarch bandage and the tourniquet was inflated to 350 mmHg. Time-out was called confirming the patient's identity, side, procedure and administration of antibiotics and tranexamic acid, 1 g IV. The incision was then created midline directly over the knee, carried down through skin and into the subcutaneous tissues and down to fascia. Full thickness subcutaneous medial flap was developed. Medial parapatellar arthrotomy was performed and the interior of the knee was inspected. There was end-stage osteoarthritis of the knee with no significant deformity. The fat pad was excised and proximal medial release on the tibia was completed using meticulous dissection and a curved osteotome. The anterior cruciate ligament was taken down. Note was made of significant attrition of the anterior and significant degenerative appearance of the posterior cruciate ligaments. The exposure was excellent. The knee was flexed 90 degrees and the patella was everted. A spot was chosen on the femur approximately 7 mm anterior to the posterior cruciate ligament insertion and an intramedullary hole was created within the femur. The intramedullary guide was then set to 5 degrees of valgus. The distal cutting block was attached and pinned into position. An appropriate amount of distal femoral resection was set. The oscillating saw was then used to make the distal femoral cut. This cut was confirmed to be flat with the flat end of an osteotome. The retractors were placed around the tibia and the tibial surface was addressed. The angle and depth of resection was adjusted using an extramedullary cutting guide. The guide had a built-in 3 degree posterior slope cut. Once the cutting guide was adjusted appropriately and in line with the axis of the tibia and confirmed to be in good position in relation to the second metatarsal and transmalleolar axis, the tibial cut was then created with protection of the posterior neurovascular structures and the collateral ligaments. The tibial cut surface was removed and sized. Femoral sizing was then accomplished using anterior referencing. Care was taken to analyze the posterior condyles for signs of deficiency or severe wear, and adjustments to the guide were made, as appropriate. 3 degree external rotation pins were placed. The cutting jig for the femur was applied to these pins. The planned cuts were further analyzed prior to performing them with the oscillating saw. No femoral notching was produced. Bone fragments were removed and the cut surfaces were finished, as necessary, with a reciprocating saw. Spacer block technique was then used to confirm that the flexion and extension gaps were equal. Soft tissue releases and adjustment of the tibial and/or femoral cuts were made, as necessary, until the gaps were equal. This included release of the posterior cruciate ligament, which was tight in this patient. The femur was then further finished for a posterior cruciate ligament substituting component. Patellar resurfacing was performed using a reamer. The size of the required patellar component was estimated and the patellar surface was then reamed down to a residual thickness which would recreate the [place] thickness with the component. The exact placement of the patellar component was adjusted for position based on preoperative x-rays and intraoperative findings. Prior to placing trial components, anesthetic solution consisting of ropivicaine with epinephrine, ketorolac, and clonidine was injected carefully and metho dically in a grid pattern using aspiration technique into the soft tissue around the knee circumferentially, starting with the deeper tissues first and progressing to fascia, and then finally the skin/subcutaneous tissue. Particular care was taken when injecting the posterior capsule. The trial components were inserted. The tibial tray was allowed to self center and the patella was noted to track very well. The position of the tibial component was marked and the tibia was then finished for a stemmed tibial component. Cement was mixed on the back table and applied to the final components. Trial components were removed and the cut surfaces of the bone were pulse lavaged thoroughly and dried. Cement was then applied to the tibial surface and pressurized into the surface using finger pressurization technique. The tibial component was then applied and excess cement was removed after it was impacted securely and noted to be flush with the cut surface. In similar fashion, the cement was applied to the cut femoral surface, pressurized in using finger pressurization and the component was impacted into place. Excess cement was removed. The polyethylene spacer was then implanted and locked into position. The patellar component was then applied in similar technique and a patellar clamp was used to hold the patella in place as the cement hardened. Once the cement had fully hardened, the knee was reinspected. Any other cement extrusion was removed and final kinematic testing showed range of motion from 0 to 130 degrees with excellent stability, both medially and laterally and appropriate alignment of the leg. Patellar tracking was excellent. The knee was then thoroughly pulse lavaged with normal saline. The tourniquet was deflated and hemostasis was obtained with electrocautery and IV tranexamic acid, 1 g given prior to inflation of the tourniquet and another gram given at the time of closure. Closure was with #2 Ethibond in the fascia and supplemented with #2 Quill, 2-0 Vicryl suture was used for the subcutaneous tissues and 3-0 Quill for the skin. Dermabond/Steri-Strips were then applied. A lightly compressive dressing was applied using Webril and an Salinas wrap. The p atient was then transferred to stretcher and taken to the recovery room in stable condition. Sponge and needle counts were correct.
[2020-07-23] MEDS ORDERED: NALOXONE 0.4 MG/ML 1 ML VIAL IV PRN (14:41)
[2020-07-23] MEDS ORDERED: TEMAZEPAM 15 MG CAP PO PRN (14:41)
[2020-07-23] MEDS ORDERED: MAGNESIUM HYDROXIDE 2,400 MG/10 ML CUP PO PRN (14:41)
[2020-07-23] MEDS ORDERED: NA PHOS,M-B/NA PHOS,DI-BA 133 ML ENEMA RECTAL PRN (14:41)
[2020-07-23] MEDS ORDERED: bisacodyL 10 MG SUPP RECTAL PRN (14:41)
[2020-07-23] MEDS ORDERED: HYDROcodone/APAP 5-325MG 1 EACH TAB PO PRN (14:41)
[2020-07-23] MEDS ORDERED: HYDROmorphone 0.5 MG/0.5 ML SYRINGE IVP PRN ×2 (14:41)
[2020-07-23] MEDS ORDERED: HYDROmorphone 1 MG/ML 1 ML SYRINGE IVP PRN (14:41)
[2020-07-23] MEDS ORDERED: ONDANSETRON 4 MG/2 ML VIAL IVP PRN (14:41)
[2020-07-23] MEDS ORDERED: hydrOXYzine pamoate 25 MG CAP PO PRN (14:41)
--- NOTE | 2020-07-23 14:48 | P.ANPRN ---
Procedure Note - Anesthesia - Nerve Block Performed Left Adductor Canal Infusion Time Out Performed: Yes Date of Procedure: 07/23/20 Procedure Start Time: 12:06 Procedure Stop Time: 12:18 Location of Patient: PreOp Indication: Acute Post-Operative Pain, Requested by Surgeon Sedation Type: Sedate with meaningful contact maintained Preparation: Sterile Prep, Sterile Dressing Position: Supine Catheter: Indwelling Needle Types: Pajunk Needle Gauge: 21 Ultrasound used to visualize needle placement: Yes Ultrasound used to observe medication spread: Yes Blood Aspirated: No Pain Paresthesia on Injection Noted: No Resistance on Injection: Normal Image Stored and Saved: Yes Events: Uneventful and Well Tolerated (ropi .5% 20cc plus dexamethasone 4mg)
--- NOTE | 2020-07-23 15:15 | XR ---
EXAMINATION TYPE: XR knee limited LT DATE OF EXAM: 07/23/2020 COMPARISON: NONE TECHNIQUE: Two views submitted HISTORY: Post op FINDINGS: There is a prosthetic knee in near anatomic alignment. There is soft tissue edema and emphysema. IMPRESSION: 1. Postoperative change. Appears in near-anatomic alignment
[2020-07-23] MEDS: HYDROcodone/APAP 5-325MG 1 EACH TAB PO PRN (19:48)
[2020-07-23] MEDS: ASPIRIN 325 MG TAB PO SCH (19:49)
[2020-07-23] MEDS ORDERED: SENNOSIDES-DOCUSATE SODIUM 1 EACH TAB PO SCH (21:00)
[2020-07-24] MEDS: HYDROcodone/APAP 5-325MG 1 EACH TAB PO PRN ×2 (02:28→08:42)
[2020-07-24] MEDS: LACTATED RINGERS 1,000 ML IV SCH (03:04)
[2020-07-24 06:27] LABS: Basophils # (A) 0.1 k/uL (0-0.2); Basophils % (A) 1 %; Eosinophils # (A) 0.2 k/uL (0-0.7); Eosinophils % (A) 2 %; HCT 41.8 % (34.0-46.0); HGB 13.4 gm/dL (11.4-16.0); Lymphocytes # (A) 1.5 k/uL (1.0-4.8); Lymphocytes % (A) 19 %; MCH 29.2 pg (25.0-35.0); MCHC 32.1 g/dL (31.0-37.0); Mean Platelet Volume 9.2; Monocytes # (A) 0.4 k/uL (0-1.0); Monocytes % (A) 5 %; Neutrophils # (A) 5.4 k/uL (1.3-7.7); Neutrophils % (A) 72 %; Platelet Count 173 k/uL (150-450); RBC 4.59 m/uL (3.80-5.40); WBC 7.5 k/uL (3.8-10.6)
--- NOTE | 2020-07-24 07:02 | P.PN ---
Progress Note - Text 07/24/20 634am 60-year-old female status post total knee replacement. Patient seen and evaluated this morning for postop pain control, patient has an On-Q pump, solution is running at 8 mL an hour. Patient has a VAS of 1, her pain is mostly located behind the knee. I explained to her that the On-Q pump does not cover the area behind the knee. Plan to continue On-Q pump infusion
[2020-07-24 08:10] VITALS: BP 123/72; PULSE 52; RESP 18; TEMP 98.4
[2020-07-24] MEDS: ASPIRIN 325 MG TAB PO SCH (08:37)
[2020-07-24] MEDS ORDERED: MELOXICAM 7.5 MG TAB PO SCH (09:00)
--- NOTE | 2020-07-24 09:38 | P.DS ---
Providers Expected date of discharge: 07/24/20 Attending physician: Rubens Redman Consults: 07/23/20 14:41 Consult Physician Routine Consulting Provider: José Miguel Buckley Reason/Comments: Medical management Do you want consulting provider notified?: Yes Primary care physician: José Miguel Buckley - Discharge Diagnosis(es) (1) Osteoarthritis of left knee Current Visit: Yes Status: Acute (2) Status post total left knee replacement Current Visit: Yes Status: Acute Hospital Course: This is a 60-year-old female who was last seen with complaint of continued left knee pain. The patient has a known history of degenerative arthritis of the left knee and presents to discuss surgical options. After discussion and consideration the patient elects to proceed with total left knee arthroplasty. The patient is seen preoperatively by Dr. Buckley and cleared for surgery. The patient is admitted to [facility] for total left knee arthroplasty. The procedure is performed without complication or sequelae. He is doing well postoperatively. Vital signs are stable at discharge. Labs are stable at discharge. the patient is ambulating well with walker with minimal assistance. The patient is discharged to home on postop day #1 pending medical clearance. Please see orders and [facility] of [facility]. Plan - Discharge Summary Discharge Rx Participant: Yes New Discharge Prescriptions: New Aspirin [Adult Low Dose Aspirin EC] 81 mg PO BID #1 tablet. Meloxicam [Mobic] 1 - 2 tab PO DAILY PRN #30 tab PRN Reason: Pain Sennosides-Docusate Sodium [Senokot-S] 1 tab PO BID #60 tablet hydrOXYzine pamoate [Vistaril] 25 mg PO Q4-6H #30 capsule HYDROcodone/APAP 10-325MG [[place] 10-325] 1 tab PO Q6H PRN #42 tab PRN Reason: Pain No Action Omeprazole [PriLOSEC] 20 mg PO QAM PRN PRN Reason: Heartburn Levothyroxine Sodium [Synthroid] 50 mcg PO QAM Ciprofloxacin HCl [Cipro] 500 mg PO BID Discharge Medication List Omeprazole [PriLOSEC] 20 mg PO QAM PRN 01/06/18 [History] Levothyroxine Sodium [Synthroid] 50 mcg PO QAM 07/04/19 [History] Ciprofloxacin HCl [Cipro] 500 mg PO BID 07/17/20 [History] Aspirin [Adult Low Dose Aspirin EC] 81 mg PO BID #1 tablet. 07/23/20 [Rx] Meloxicam [Mobic] 1 - 2 tab PO DAILY PRN #30 tab 07/23/20 [Rx] Sennosides-Docusate Sodium [Senokot-S] 1 tab PO BID #60 tablet 07/23/20 [Rx] hydrOXYzine pamoate [Vistaril] 25 mg PO Q4-6H #30 capsule 07/23/20 [Rx] HYDROcodone/APAP 10-325MG [[place] 10-325] 1 tab PO Q6H PRN #42 tab 07/24/20 [Rx] Follow up Appointment(s)/Referral(s): Emma Mayo, RACH [PHYSICIAN INSECTICIDE SUPERVISOR] - 08/08/20 1:45 pm José Miguel Bucklye DO [Primary Care Provider] - 1 Week Activity/Diet/Wound Care/Special Instructions: May bear wt as tolerated w walker. May shower 48h post op. Leave Optifoam dressing intact 7-10 days. Discharge Disposition: HOME WITH HOME HEALTH SERVICES
--- NOTE | 2020-07-24 10:48 | P.PN ---
Subjective Progress Note Date: 07/24/20 This is a 60-year-old female status post left total knee arthroplasty. Tolerated procedure well. Ambulating with PT with walker requiring minimal assistance. Denies lightheadedness, dizziness or focal deficits. Passing flatus. Pain controlled. Denies chest pain, palpitations or shortness of breath. Objective - Vital Signs Vital signs: Vital Signs Temp 98.4 F 07/24/20 07:00 Pulse 52 L 07/24/20 07:00 Resp 18 07/24/20 07:00 BP 123/72 07/24/20 07:00 Pulse Ox 98 07/24/20 07:00 Intake & Output 07/23/20 07/24/20 07/24/20 18:59 06:59 18:59 Intake Total 851 Output Total 50 Balance 801 Weight 68.9 kg Intake: IV 851 Output: Estimated Blood Loss 50 Other: Voiding Method Toilet # Voids 2 - Exam - Exam VITAL SIGNS: As above GENERAL: Sitting up in chair, no acute distress HEENT: Conjunctivae normal. eyes normal. Oral mucosa moist CARDIOVASCULAR: S1, S2 regular.No murmur RESPIRATION: Breath sounds diminished in the bases. No rhonchi or crackles. ABDOMEN: Soft, nontender . No guarding. no masses palpable. Bowel sounds heard. LEGS: Decreased edema of left lower extremity, dressing clean dry and intact, positive pulses, no calf tenderness. NERVOUS SYSTEM: Cranial N 2-12 grossly normal. Moves all 4 limbs. Residual left-sided weakness secondary to stroke, no gross focal deficits. strength and sensation grossly intact. 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 Anticoagulation, pain management as per orthopedic surgery. Maintain aggressive pulmonary toileting with incentive spirometer as previously advised. Medically cleared for discharge .Follow-up with PCP, Dr. José Miguel Buckley in one week. The impression and plan of care has been dictated as directed. : I performed a history and examination of this patient, discussed the same with the dictator. I agree with the dictator's note ,documented as a scribe. Any additional findings or plans will be noted.
== END 2020-07-24 12:07 | disposition home health service (06) ==
LOC: OR 10:50 → 4SSUR 16:29 → OR 07-24 12:07
PROVIDERS: ATTEND Orthopaedic Surgery
DX: M17.12 Unilateral primary osteoarthritis, left knee (principal); E07.9 Disorder of thyroid, unspecified; H40.9 Unspecified glaucoma; G43.909 Migraine, unspecified, not intractable, without status migrainosus; Z87.891 Personal history of nicotine dependence; K30 Functional dyspepsia; Z86.73 Personal history of transient ischemic attack (TIA), and cerebral infarction without residual deficits; Z97.3 Presence of spectacles and contact lenses; Z90.710 Acquired absence of both cervix and uterus; Z79.890 Hormone replacement therapy; Z79.899 Other long term (current) drug therapy; Z88.1 Allergy status to other antibiotic agents; Z88.8 Allergy status to other drugs, medicaments and biological substances
CPT/HCPCS: 97110; 97161; 64448; 76942; 85025; 88300; 73560; 27447; C1713; C1776; J2250; J0171; J0690 ×3; J2405; J1885; J2795 ×2; J0735

== ENCOUNTER → 2021-06-28 | Outpatient (CLI) | payer MEDICARE, OTHER | END | disposition home or self-care (01) | LOC: LABWHC1 16:52 | PROVIDERS: ATTEND Family Medicine | DX: Z20.822 Contact with and (suspected) exposure to COVID-19 (principal) | CPT/HCPCS: U0003; C9803; U0005 ==

== ENCOUNTER → 2022-03-19 | Outpatient (CLI) | payer MEDICARE, OTHER ==
--- NOTE | 2022-03-19 11:56 | XR ---
EXAMINATION TYPE: XR chest 2V DATE OF EXAM: 03/19/2022 COMPARISON: 01/15/2014 TECHNIQUE: PA and lateral views submitted. HISTORY: Cough FINDINGS: The lungs are clear and there is no pneumothorax, pleural effusion, or focal pneumonia. Mild hyperi nflation. Heart size normal. No overt failure. Biapical pleural thickening. IMPRESSION: 1. No acute process. Correlate for COPD.
== END | disposition home or self-care (01) ==
LOC: RADXRMAIN 11:39
PROVIDERS: ATTEND Family Medicine
DX: R05.9 Cough, unspecified (principal)
CPT/HCPCS: 71046

== ENCOUNTER → 2022-04-14 | Outpatient (CLI) | payer MEDICARE, OTHER ==
--- NOTE | 2022-04-14 15:05 | XR ---
EXAMINATION TYPE: XR wrist complete RT DATE OF EXAM: 04/14/2022 COMPARISON: None HISTORY: Pain TECHNIQUE: 4 view right wrist FINDINGS: No acute fractures or dislocations are evident. Soft tissues appear normal. Alignment appea rs preserved. If there is pain at the anatomic snuff box, nuclear medicine bone scan could be performed for additio nal evaluation. Follow up exams can be performed 7-10 days from acute trauma for continued pain. MRI is available for soft tissue evaluation. IMPRESSION: 1. No acute osseous abnormality right wrist
--- NOTE | 2022-04-14 15:09 | XR ---
EXAMINATION TYPE: XR hand complete RT DATE OF EXAM: 04/14/2022 COMPARISON: None HISTORY: Pain, lumps TECHNIQUE: 3 view right hand FINDINGS: No acute fracture or dislocation is evident. Soft tissues are normal. Mild diffuse joint sp neo narrowing of the proximal and distal interphalangeal joint spaces may be present. Structures may be slightly osteopenic. Follow up exams can be performed 7-10 days from acute trauma for continued pain. IMPRESSION: 1. No acute osseous abnormality right hand
== END | disposition home or self-care (01) ==
LOC: RADXRMAIN 13:31
PROVIDERS: ATTEND Family Medicine
DX: R22.31 Localized swelling, mass and lump, right upper limb (principal)

== ENCOUNTER → 2022-06-17 | Outpatient (CLI) | payer MEDICARE, OTHER ==
--- NOTE | 2022-06-18 10:25 | MM ---
Reason for Exam: Screening (asymptomatic). Baseline mammogram. Patient History: Menarche at age 15. First Full-Term at age 19. Left ovary removed at age 42. Right ovary removed at age 42. Hysterectomy at age 42. Postmenopausal. 1996, Bilateral Implants. Paternal grandmother had breast cancer under age 50. Risk Values: Marielos 5 year model risk: 1.0%. NCI Lifetime model risk: 4.6%. Prior Study Comparison: Patient's first Mammogram. No prior studies available for comparison. Tissue Density: The breast tissue is heterogeneously dense. This may lower the sensitivity of mammography. Findings: Analyzed By CAD. Bilateral breast prostheses are present. No suspicious groups of microcalcifications, spiculated or lobular masses, architectural distortion or other secondary signs of malignancy are mammographically apparent. Overall Assessment: Benign, BI-RAD 2 Management: Screening Mammogram of both breasts in 1 year. A negative mammogram report should not preclude additional follow up of suspicious palpable abnormalities. Patient should continue monthly self breast exam. A clinical breast exam by your physician is recommended on an annual basis and results should be correlated with mammographic findings. Electronically signed and approved by: Junior Saldivar D.O. Radiologis
== END | disposition home or self-care (01) ==
LOC: RADMAMWWP 16:03
PROVIDERS: ATTEND Family Medicine
DX: Z12.31 Encounter for screening mammogram for malignant neoplasm of breast (principal); Z78.0 Asymptomatic menopausal state; Z80.3 Family history of malignant neoplasm of breast
CPT/HCPCS: 77063; 77067

== ENCOUNTER 2022-09-12 05:48 | Day surgery (SDC) | payer MEDICARE, OTHER ==
[2022-09-08 09:41] VITALS: BMI 28.5
[2022-09-12] MEDS ORDERED: LACTATED RINGERS 1,000 ML IV SCH (06:01)
[2022-09-12] MEDS ORDERED: ONDANSETRON 4 MG/2 ML VIAL ONE (06:35)
[2022-09-12] MEDS ORDERED: LIDOCAINE 1% (10MG/ML) FOR IV START INTRADERMA ONE (06:42)
[2022-09-12] MEDS ORDERED: DEXAMETHASONE SOD PHOSPHATE 4 MG/ML 1 ML VIAL IV ONE (06:43)
[2022-09-12] MEDS ORDERED: SCOPOLAMINE 1 MG/72 HR PATCH TRANSDERM ONE (06:44)
[2022-09-12] MEDS ORDERED: PROPOFOL 10 MG/ML 20 ML VIAL IV ONE (07:26)
[2022-09-12] MEDS ORDERED: fentaNYL (PF) 50 MCG/ML 2 ML AMP ONE (07:26)
[2022-09-12] MEDS ORDERED: FLUMAZENIL 0.1 MG/ML 5 ML VIAL IVP ONE (07:26)
[2022-09-12] MEDS ORDERED: SUCCINYLCHOLINE CHLORIDE 200 MG/10 ML VIAL IV ONE (07:26)
[2022-09-12] MEDS ORDERED: LIDOCAINE 2% INJ 20 MG/ML (2 ML VIAL) ONE (07:26)
[2022-09-12] MEDS ORDERED: MIDAZOLAM 2 MG/2 ML VIAL ONE (07:26)
[2022-09-12] MEDS ORDERED: ceFAZolin 1,000 MG in SODIUM CHLORIDE 0.9% 1,000 ML IRRIGATION ONE (07:26)
[2022-09-12] MEDS ORDERED: NALOXONE 0.4 MG/ML 1 ML VIAL ONE (07:26)
[2022-09-12] MEDS ORDERED: BUPIVACAINE (PF) 0.25% 30 ML VIAL SQ ONE (07:39)
--- NOTE | 2022-09-12 08:26 | P.OP ---
Date of Procedure: 09/12/22 Preoperative Diagnosis: Deformity of left fourth toe Postoperative Diagnosis: Same Procedure(s) Performed: Extensor tendon transfer left fourth toe Implants: 3.5 x 8 mm interference screw Anesthesia: IRWIN Surgeon: Vicente Vargas Estimated Blood Loss (ml): 0 Pathology: none sent Condition: stable Disposition: PACU Indications for Procedure: Patient has had 2 previous surgeries on the left fourth toe. The first surgery was to address the flexion deformity the proximal interphalangeal joint. Second surgery is due to the fact that the fourth toe was in a plantarflexed position with inability to dorsiflex. Patient complained of pain at the tip of the toe as well as a toe any down and being easily caught on the floor when walking. The decision was made to perform a tendon transfer to try to spend the fourth toe Description of Procedure: The patient was brought into the operating room and placed on table supine position. Timeout was taken to confirm correct patient identifiers, correct laterality of surgery, and correct procedure. When all staff in the room were in agreement with the timeout, the patient was induced placed under general anesthesia. A well-padded tourniquet was placed left ankle. Then 20 mL of 0.25% Marcaine was injected as a left ankle block. The left foot was then prepped and draped usual manner. The left foot was exsanguinated and the tourniquet inflated to 250 mmHg. Attention first directed over the fourth metatarsal phalangeal joint, where a linear incision was made and deepened down to the subcutaneous tissue careful to identify, avoid, and retract any neurovascular structures and cauterize any bleeding vessels. Dissection was continued bluntly down to the soft tissue overlying the capsule of the fourth metatarsal phalangeal joint. A small incision was made over the periosteum at the base of the proximal phalanx and reflected medially and laterally to prep the area for placement of the tendon transfer. A guidewire was then placed to the base of the proximal phalanx under direct fluoroscopic visualization. Then the overdrill was placed and the drill passed through both the dorsal and plantar cortices of the proximal phalanx. Then attention was directed over the proximal phalangeal joint of the left fifth toe, where a small incision was made through the skin and deepened down to the extensor tendon. Extensor tendon was then released. The tendon sheath was also released proximal to the digit into the midfoot. And then further dissection was done through the incision of the fourth digit through the saphenous layer until the tendon could be accessed whic h is then pulled into the incision over the fourth digit. Any further release of the tendon sheath was done to allow for the correct trajectory of the tendon to the fourth digit. Once completed a whipstitch was placed in the distal end of the transfer tendon. Then utilizing a needle the suture was passed through the drill hole and out the plantar surface of the foot. The suture was pulled passed the tendon through the drill hole in the proximal phalanx and then the digit was positioned until there was proper tension of the tendon and that the fourth toe was satisfactorily suspended. Once the desired position was achieved a 3.5 x 8 mm interference screw was inserted and the drill hole and advanced to lock the tendon in place. The rig welder was removed and then the forefoot was loaded to simulate weightbearing. The digit was in a more dorsiflexed position and in line with the remaining digits. The wound is thoroughly irrigated with antibiotic saline. Subcu closure done for Monocryl and skin closure was done with dermal glue. Steri-Strips are placed across incision. A jumpstart dressing and a dry sterile dressing applied to left foot. The tourniquet was released and capillary refill return to all digits on the left foot. The patient tolerated above procedure and anesthesia well. The patient left the operating room to recovery with vital signs stable.
[2022-09-12 08:47] VITALS: TEMP 97
[2022-09-12 09:13] VITALS: RESP 16
[2022-09-12] MEDS ORDERED: HYDROcodone/APAP 7.5-325MG 1 EACH TAB ONE (09:34)
[2022-09-12 09:43] VITALS: BP 132/74; PULSE 63
== END 2022-09-12 10:26 | disposition home or self-care (01) ==
LOC: OR 05:48
PROVIDERS: ATTEND Podiatrist
DX: M20.12 Hallux valgus (acquired), left foot (principal)
CPT/HCPCS: 27690; C1713; J2250; J0330; J1100; J2310; J0690 ×2; J2405; J3010; J2704; J2001

== ENCOUNTER → 2023-01-07 | Outpatient (CLI) | payer MEDICARE, OTHER ==
--- NOTE | 2023-01-07 15:44 | XR ---
EXAMINATION TYPE: XR chest 2V DATE OF EXAM: 01/07/2023 COMPARISON: NONE HISTORY: Shortness of breath TECHNIQUE: Frontal and lateral views of the chest are obtained. FINDINGS: Scattered senescent parenchymal changes noted. Hyperinflation compatible with COPD. No evidence for infiltrate. No evidence for atelectasis. Heart size is stable. Mediastinal structures are stable and grossly unremarkable. No evidence for hilar prominence. Degenerative changes dorsal spine. IMPRESSION: 1. No evidence for acute pulmonary disease.
== END | disposition home or self-care (01) ==
LOC: RADXRMAIN 15:28
PROVIDERS: ATTEND Family Medicine
DX: R07.9 Chest pain, unspecified (principal); R06.02 Shortness of breath
CPT/HCPCS: 71046

== ENCOUNTER 2023-03-27 09:20 | Day surgery (SDC) | payer MEDICARE, OTHER ==
[2023-03-27 09:50] VITALS: RESP 16; TEMP 96.8
[2023-03-27] MEDS ORDERED: LACTATED RINGERS 1,000 ML IV ONE ×2 (09:50→11:54)
[2023-03-27] MEDS ORDERED: ONDANSETRON 4 MG/2 ML VIAL ONE (09:55)
[2023-03-27] MEDS ORDERED: ONDANSETRON 4 MG/2 ML VIAL IVP ONE (09:55)
[2023-03-27] MEDS ORDERED: ePHEDrine 50 MG/ML 1 ML VIAL ONE (11:11)
[2023-03-27] MEDS ORDERED: PROPOFOL 10 MG/ML 20 ML VIAL IV ONE (11:11)
[2023-03-27] MEDS ORDERED: MIDAZOLAM 2 MG/2 ML VIAL ONE (11:11)
[2023-03-27] MEDS ORDERED: fentaNYL (PF) 50 MCG/ML 2 ML AMP ONE (11:11)
[2023-03-27] MEDS ORDERED: LIDOCAINE 2% INJ 20 MG/ML (2 ML VIAL) ONE (11:11)
[2023-03-27] MEDS ORDERED: ceFAZolin 1,000 MG in SODIUM CHLORIDE 0.9% 1,000 ML IRRIGATION ONE (11:13)
[2023-03-27] MEDS ORDERED: BUPIVACAINE (PF) 0.25% 30 ML VIAL SQ ONE (11:21)
--- NOTE | 2023-03-27 12:10 | P.OP ---
Date of Procedure: 03/27/23 Preoperative Diagnosis: Hammertoe fifth digit left foot Postoperative Diagnosis: Same Procedure(s) Performed: Hammertoe correction fifth digit left foot Implants: 2.3 mm x 30 mm screw Anesthesia: IRWIN Surgeon: Vicente Vargas Estimated Blood Loss (ml): 0 Pathology: none sent Condition: stable Disposition: PACU Description of Procedure: The patient was brought into the operating room and placed on table in the supine position. Timeout was taken to confirm correct patient identifiers, correct laterally of surgery, and correct procedure. Once all staff in the room were in agreement the Timeout, the patient was induced and placed under general anesthesia. A well-padded tourniquet was placed on left ankle and then 15 mL of 0.25% Marcaine was injected as a lateral forefoot block. The left foot was then prepped and draped in the usual manner. The left foot was exsanguinated and the tourniquet inflated to 250 mmHg. Attention was directed over the dorsal lateral aspect of the fifth digit over the proximal interphalangeal joint. 2 semi-elliptical converging incisions were made over the proximal interphalangeal joint. The axis of the incisions was oriented distal medial to proximal lateral. The incisions were deepened down to the subcutaneous tissue and then the interposing skin was carefully dissected off of the subcutaneous tissue and removed from the surgical foot. The dorsal capsular and ligamentous structures over the fifth proximal interphalangeal joint were resected along with the collateral ligaments so that the proximal phalangeal head could be accessed area saw was used to remove the head of the proximal phalanx. A Joni was used to remove the articular cartilage from the base of the middle phalanx. The digit was then mobilized and it was noted that it could be rotated back into the rectus position. A guidewire for a 2.3 mm screw was used to create a pilot boat captain hole in the proximal phalanx. Then it was inserted at the base of the middle phalanx and advanced up the distal aspect of the digit. Small portion wire was left in the surgical site which was aligned with the pilot boat captain hole in the proximal phalanx. The digit was reduced and rotated and then the wire advanced to the base of the proximal phalanx. Fluoroscopy confirmed the proper position of the wire both on AP and lateral views. A small stab incision was made through the skin where the pin was inserted at the tip of the toe. Then a 2.3 mm x 30 mm cannulated screw was inserted over the wire and advanced until the head engaged the distal phalanx. There was good compression noted across the arthrodesis site at the proximal interphalangeal joint. Prior to fully tightening the screw, the fifth digit was internally rotated to correct the varus deformity of the digit. Once the digit was in corrected alignment, the screw was fully tightened fixating the toe in position. Fluoroscopy confirmed the proper position of the screw both on AP and lateral views. All wounds were thoroughly irrigated with antibiotic saline. The dorsal skin incision was closed with 3-0 nylon. Nonadherent gauze and a dry sterile dressing applied to the left foot. The tourniquet was released and capillary refill return to all digits on the left foot. Anesthesia was reversed and the patient was taken recovery with vital signs stable.
[2023-03-27 13:10] VITALS: BP 150/88; PULSE 63
[2023-03-27] MEDS ORDERED: HYDROcodone/APAP 7.5-325MG 1 EACH TAB PO ONE (13:11)
[2023-03-27] MEDS ORDERED: HYDROcodone/APAP 7.5-325MG 1 EACH TAB ONE (13:13)
== END 2023-03-27 13:55 | disposition home or self-care (01) ==
LOC: OR 09:20
PROVIDERS: ATTEND Podiatrist
DX: M20.42 Other hammer toe(s) (acquired), left foot (principal); I10 Essential (primary) hypertension; F17.200 Nicotine dependence, unspecified, uncomplicated; E03.9 Hypothyroidism, unspecified; K21.9 Gastro-esophageal reflux disease without esophagitis; Z88.8 Allergy status to other drugs, medicaments and biological substances; Z83.3 Family history of diabetes mellitus; Z79.899 Other long term (current) drug therapy
CPT/HCPCS: 28285; J0690 ×2; J2405

== ENCOUNTER → 2023-09-21 | Outpatient (CLI) | payer MEDICARE, OTHER ==
--- NOTE | 2023-09-21 20:29 | MR ---
EXAMINATION TYPE: MR cervical spine wo con DATE OF EXAM: 09/21/2023 7:29 PM CLINICAL INDICATION:Female, 63 years old with history of [id number] SPONDYLOSIS; PHH, Neck pain, headache s, pain in left shoulder and down arm. COMPARISON: None. TECHNIQUE: Multi planar, multi sequence imaging was performed utilizing: T1-weighted, T2-weighted, an d turbo inversion recovery imaging of the cervical spine. IV Contrast: cc (none if empty) FINDINGS: Alignment: The cervical vertebral bodies have preserved heights. Alignment is within normal limits gi pepito patient positioning. Bones: Scattered osteophytes and disc space narrowing. Multilevel degenerative disc disease is noted and most pronounced at the C5-C7 vertebral levels. Cord: The spinal cord is unremarkable with regards to their signal intensity and morphology. Discs: Multilevel disc desiccation is present. C2-C3: No significant disc pathology. The spinal canal is patent. No neural foraminal stenosis. C3-C4: No significant disc pathology. The spinal canal is patent. Bilateral facet and uncovertebral joint arthropathy are present with mild bilateral neural foraminal stenosis. C4-C5: A disc osteophyte complex is present which minimally narrows the ventral subarachnoid space. Bilateral facet and uncovertebral joint arthropathy are present with mild bilateral neural foraminal stenosis. C5-C6: A disc osteophyte complex is present which minimally narrows the ventral subarachnoid space. Bilateral facet and uncovertebral joint arthropathy are present with mild bilateral neural foraminal stenosis. C6-C7: A disc osteophyte complex is present which minimally narrows the ventral subarachnoid space. Bilateral facet and uncovertebral joint arthropathy are present with moderate bilateral neural chico inal stenosis. C7-T1: No significant disc pathology. The spinal canal is patent. Bilateral facet and uncovertebral joint arthropathy are present with [id number] right and mild left neural foraminal stenosis. Other: None. IMPRESSION: 1. No evidence for disc herniation or significant spinal canal stenosis. 2. Multilevel disc degeneration with associated osteoarthritic changes. Neural foraminal stenosis wor se at C6-C7 with moderate bilateral stenosis.
== END | disposition home or self-care (01) ==
LOC: RADMRIMAIN 18:48
PROVIDERS: ATTEND Physical Medicine & Rehabilitation
DX: M99.71 Connective tissue and disc stenosis of intervertebral foramina of cervical region (principal); M47.812 Spondylosis without myelopathy or radiculopathy, cervical region; M50.322 Other cervical disc degeneration at C5-C6 level; M50.321 Other cervical disc degeneration at C4-C5 level; M50.323 Other cervical disc degeneration at C6-C7 level
CPT/HCPCS: 72141

== ENCOUNTER 2024-07-25 09:01 | Day surgery (SDC) | payer MEDICARE, OTHER ==
[~2024-07-25 09:01] MED LIST changes: -HYDROmorphone 0.5 MG/0.5 ML SYRINGE IVP PRN; -MIDAZOLAM 2 MG/2 ML VIAL IV PRN; -ONDANSETRON 4 MG/2 ML VIAL IVP ONE; -ROPIVACAINE 246.25 MG, EPINEPHrine 0.5 MG, KETOROLAC 30 MG, cloNIDine HCL/PF 80 MCG, WA... MISCELLANE ONE; -TRANEXAMIC ACID 1,000 MG in SODIUM CHLORIDE 0.9% 100 ML IVPB ONE
[2024-07-25 09:26] VITALS: TEMP 97.3
[2024-07-25] MEDS: LACTATED RINGERS 1,000 ML IV SCH (09:40)
[2024-07-25] MEDS ORDERED: PROPOFOL 10 MG/ML 20 ML VIAL IV ONE (09:40)
--- NOTE | 2024-07-25 09:43 | P.GSHP ---
History of Present Illness H&P Date: 07/25/24 Chief Complaint: Gerd This a 64-year-old female who presents today for EGD. S she has had issues with GERD. Past Medical History Past Medical History: CVA/TIA, Eye Disorder, GERD/Reflux, Hypertension, Osteoarthritis (OA), Thyroid Disorder, Vascular Disorder Additional Past Medical History / Comment(s): GLAUCOMA, vertigo @times, frequent headaches, stroke yrs ago that affected left side-drags left foot when tired, brain aneurysm with surgery. Last Myocardial Infarction Date:: unk History of Any Multi-Drug Resistant Organisms: None Reported Past Surgical History: Hysterectomy, Orthopedic Surgery, Tonsillectomy Additional Past Surgical History / Comment(s): Brain aneurysm repair, julian shoulder & knee arthroscopies,colonoscopy, 4 th toe amputated lft foot, left eye cataract removed,. julian. laser eye surg., left side toe surgery Past Anesthesia/Blood Transfusion Reactions: Previous Problems w/ Anesthesia Additional Past Anesthesia/Blood Transfusion Reaction / Comment(s): woke up gasping for air in recovery after last toe/foot surg-has never had any problems before or after. Pt has never received blood. Smoking Status: Former smoker - Past Family History Father Family Medical History: Coronary Artery Disease (CAD), Myocardial Infarction ([place]) Brother(s) Family Medical History: Coronary Artery Disease (CAD), CVA/TIA Medications and Allergies Home Medications Medication Instructions Recorded Confirmed Type Omeprazole [PriLOSEC] 60 mg PO QAM 01/06/18 07/21/24 History Levothyroxine Sodium [Synthroid] 125 mcg PO QAM 07/04/19 07/21/24 History amLODIPine [Norvasc] 5 mg PO QAM 03/26/23 07/21/24 History Allergies Allergy/AdvReac Type Severity Reaction Status Date / Time tetracycline [Tetracycline] Allergy Unknown Anaphylaxis Verified 07/25/24 09:27 cortisone Allergy Rash/Hives Verified 07/25/24 09:27 Surgical - Exam Vital Signs Temp Pulse Resp BP Pulse Ox 97.3 F L 84 16 160/77 98 07/25/24 09:25 07/25/24 09:25 07/25/24 09:25 07/25/24 09:25 07/25/24 09:25 - General well developed, well nourished - Eyes PERRL - ENT normal pinna - Neck no masses - Respiratory normal expansion - Cardiovascular Rhythm: regular - Abdomen Abdomen: soft, non tender Assessment and Plan Assessment: Gerd. Will perform EGD.
--- NOTE | 2024-07-25 10:02 | P.OP ---
Date of Procedure: 07/25/24 Preoperative Diagnosis: Gerd Postoperative Diagnosis: Antral gastritis Hiatal hernia Esophagitis Procedure(s) Performed: EGD Anesthesia: MAC Surgeon: Morgan Wei Pathology: other (Antrum, esophagus) Condition: stable Disposition: PACU Description of Procedure: The patient was placed on the endoscopy table in the lateral position. She received IV sedation. The Gastroflux oropharynx passed in the esophagus and stomach. Scope was placed through the pylorus. The first and second portion of the duodenum appeared normal. The scope was brought back to the antrum this appeared mildly Flaim. A biopsy performed. Scope was retroflexed and there was some retained food seen at the GE junction. There was a small sliding hiatal hernia. The GE junction was at [id number]. The distal esophagus. Inflamed this was biopsied. The proximal esophagus appeared normal. Scope withdrawn the patient.
[2024-07-25 10:29] VITALS: BP 132/83; PULSE 63; RESP 20
== END 2024-07-25 11:05 | disposition home or self-care (01) ==
LOC: ORWHC2ENDO 09:01
PROVIDERS: ATTEND Surgery
DX: K21.9 Gastro-esophageal reflux disease without esophagitis
CPT/HCPCS: 43239; 88305

== ENCOUNTER 2024-08-17 06:17 | Observation (INO) | payer MEDICARE, OTHER ==
[2024-08-16 11:16] VITALS: BMI 32.0
[2024-08-17] MEDS ORDERED: fentaNYL (PF) 50 MCG/ML 2 ML AMP IVP PRN (07:00)
[2024-08-17] MEDS ORDERED: MIDAZOLAM 2 MG/2 ML VIAL IV PRN (07:00)
[2024-08-17] MEDS: DEXAMETHASONE SOD PHOSPHATE 4 MG/ML 1 ML VIAL IV ONE (07:14)
[2024-08-17] MEDS: ONDANSETRON 4 MG/2 ML VIAL IVP ONE (07:14)
[2024-08-17] MEDS: LACTATED RINGERS 1,000 ML IV SCH ×2 (07:15→11:08)
[2024-08-17] MEDS: ACETAMINOPHEN TAB 500 MG TAB PO PRN (07:15)
[2024-08-17] MEDS: HEPARIN SODIUM,PORCINE 5,000 UNIT/ML 1 ML VIAL SQ PRN (07:15)
[2024-08-17 07:25] LABS: HCT 47.9 % (34.0-46.0); HGB 15.7 gm/dL (11.4-16.0); MCH 29.2 pg (25.0-35.0); MCHC 32.7 g/dL (31.0-37.0); MCV 89.3 fL (80.0-100.0); Mean Platelet Volume 8.8; Platelet Count 247 k/uL (150-450); RBC 5.36 m/uL (3.80-5.40); RDW 14.1 % (11.5-15.5); WBC 6.4 k/uL (3.8-10.6)
[2024-08-17] MEDS: IV FLUID CONTINUATION 1,000 ML IV ONE (07:30)
[2024-08-17] MEDS: LIDOCAINE 1%-EPI 1:100,000 20 ML VIAL SQ ONE (08:02)
[2024-08-17] MEDS: LACTATED RINGERS 1,000 ML IV ONE (08:44)
[2024-08-17] MEDS ORDERED: HYDROcodone/APAP 5-325MG 1 EACH TAB PO PRN (08:54)
[2024-08-17] MEDS ORDERED: traMADol 50 MG TAB PO PRN (08:54)
[2024-08-17] MEDS ORDERED: NALOXONE 0.4 MG/ML 1 ML VIAL IV PRN (08:54)
[2024-08-17] MEDS ORDERED: ONDANSETRON 4 MG/2 ML VIAL IVP PRN (08:54)
[2024-08-17] MEDS ORDERED: ACETAMINOPHEN TAB 325 MG TAB PO PRN (08:54)
[2024-08-17] MEDS ORDERED: HYDROmorphone 1 MG/ML 1 ML SYRINGE IVP PRN (08:54)
--- NOTE | 2024-08-17 08:54 | P.OP ---
Date of Procedure: 08/17/24 Preoperative Diagnosis: Gerd Hiatal hernia Postoperative Diagnosis: Gerd Hiatal hernia Procedure(s) Performed: Laparoscopic Conchita with [place] bioabsorbable mesh Anesthesia: IRWIN Surgeon: Morgan Wei Pathology: none sent Condition: stable Disposition: PACU Description of Procedure: The patient was placed on the operating table in the supine position. She received general anesthesia. She was then placed in dorsal lithotomy position. Her abdomen was prepped and draped in the usual sterile fashion. The skin incision sites were anesthetized with 1% local Xylocaine. The skin was incised in the left periumbilical area with an 11 scalpel. Using a 5 mm blade was trocar under direct visitation the peritoneal cavity was entered. And then insufflated. After adequate insufflation the laparoscope was placed back into the peritoneal cavity. Next a 5 mm trocar was placed in the right epigastric and then the right lateral position. Another 5 mm trochars placed in the left lateral position. Another 5 mm trocar placed in the left epigastric position. And the original left periumbilical trocar was exchanged for a 10 mm trocar. The left lateral lobe liver was retracted. The patient had a large hiatal hernia. Using the Harmonic scissors the crural defect was dissected in the Harmonic scissors were used to dissect the hiatal hernia sac. The fundus of the stomach was completely mobilized by using the Harmonic scissors to divide short gastric vessels. The stomach was reduced into the peritoneal cavity. The crura was dissected with the Harmonic scissors. And then the crural repair was performed using 2-0 Ethibond suture. The [place] bio A mesh was then placed over top of the repair and secured with 2-0 Ethibond suture. Next a 58-[place] bougie dilator was placed the patient's oral pharynx and into the esophagus into the stomach by the PUBLIC POLICY MANAGER. The fundoplication was then performed using 2-0 Ethibond suture. A 360 fundoplication was performed. At this point the dilator was withdrawn. The stomach and esophagus were inspected there is known to any injury to the stomach or esophagus. The abdomen was irrigated there is no bleeding seen. The trochars are withdrawn. Skin was closed interrupted 3-0 Monocryl suture. Dermabond was applied. Patient tolerated procedure well and was sent to recovery in stable condition.
[2024-08-17] MEDS: HYDROmorphone 0.5 MG/0.5 ML SYRINGE IVP PRN (09:14)
[2024-08-17] MEDS: ENOXAPARIN 40 MG/0.4 ML SYRINGE SQ SCH (11:08)
[2024-08-17] MEDS: FAMOTIDINE 20 MG TAB PO SCH (11:08)
[2024-08-17] MEDS: KETOROLAC 15 MG/ML 1 ML VIAL IVP SCH (11:27)
[2024-08-17] MEDS: HYDROmorphone 2 MG/ML 1 ML SYRINGE IVP PRN (13:05)
--- NOTE | 2024-08-17 13:16 | P.CONS ---
History of Present Illness - Reason for Consult medical management - History of Present Illness 64-year-old female is admitted for elective laparoscopic Conchita's fundoplication. Patient is complaining of epigastric abdominal discomfort and burping. Patient denies any fever chills nausea vomiting. REVIEW OF SYSTEMS: All other systems are negative except those mentioned in the HPI PHYSICAL EXAMINATION: GENERAL: The patient is alert and oriented x3, not in any acute distress. Well developed, well nourished. HEENT: Pupils are round and equally reacting to light. EOMI. No scleral icterus. No conjunctival pallor. Normocephalic, atraumatic. No pharyngeal erythema. No thyromegaly. CARDIOVASCULAR: S1 and S2 present. No murmurs, rubs, or gallops. PULMONARY: Chest is clear to auscultation, no wheezing or crackles. ABDOMEN: Soft, nontender, nondistended, normoactive bowel sounds. No palpable organomegaly. MUSCULOSKELETAL: No joint swelling or deformity. EXTREMITIES: No cyanosis, clubbing, or pedal edema. NEUROLOGICAL: Gross neurological examination did not reveal any focal deficits. SKIN: No rashes. Assessment and plan -Status post incidence fundoplication pain management DVT prophylaxis per primary service patient is still in some pain in the immediate postoperative. -Hypothyroidism continue levothyroxine -Gastroesophageal reflux disease patient is status post Conchita's fundoplication continue with PPIs -Hypertension will monitor the blood pressures without. Will start if needed DVT prophylaxis:as per primary service Past Medical History Past Medical History: CVA/TIA, Eye Disorder, GERD/Reflux, Hypertension, Osteoarthritis (OA), Thyroid Disorder, Vascular Disorder Additional Past Medical History / Comment(s): Hiatal hernia, chronic generalized pain from arthritis, uses cane or walker as needed, gluacoma, vertigo at times, frequent headaches, stroke yrs ago that affected left side-drags left foot when tired, brain aneurysm with surgery. Last Myocardial Infarction Date:: unk History of Any Multi-Drug Resistant Organisms: None Reported Past Surgical History: Hysterectomy, Orthopedic Surgery, Tonsillectomy Additional Past Surgical History / Comment(s): Brain aneurysm repair, bilateral shoulder surgery, bilateral knee arthroscopies, colonoscopy, bilateral laser eye surgery, left toe surgery, left cataract removed, left 4th toe amputated, EGD. Past Anesthesia/Blood Transfusion Reactions: Previous Problems w/ Anesthesia Additional Past Anesthesia/Blood Transfusion Reaction / Comm: Woke up gasping for air in recovery after last toe/foot surgery-has never had any problems before or after. Pt has never received blood. Past Psychological History: No Psychological Hx Reported Additional Psychological History / Comment(s): Pt resides with spouse. Pt uses cane Smoking Status: Current every day smoker, Light tobacco smoker Past Alcohol Use History: None Reported Additional Past Alcohol Use History / Comment(s): Started smoking in 1989, smokes 2 cigarettes daily. Past Drug Use History: None Reported - Past Family History Father Family Medical History: Coronary Artery Disease (CAD), Myocardial Infarction ([place]) Brother(s) Family Medical History: Coronary Artery Disease (CAD), CVA/TIA Medications and Allergies Home Medications Medication Instructions Recorded Confirmed Type Omeprazole [PriLOSEC] 60 mg PO QAM 01/06/18 08/16/24 History Levothyroxine Sodium [Synthroid] 125 mcg PO QAM 07/04/19 08/16/24 History amLODIPine [Norvasc] 5 mg PO QAM 03/26/23 08/16/24 History Allergies Allergy/AdvReac Type Severity Reaction Status Date / Time tetracycline [Tetracycline] Allergy Unknown Anaphylaxis Verified 08/17/24 06:53 cortisone Allergy Rash/Hives Verified 08/17/24 06:53 Physical Exam Vitals: Vital Signs Temp Pulse Resp BP Pulse Ox 08/17/24 11:18 62 117/78 93 L 08/17/24 11:05 59 L 112/74 93 L 08/17/24 11:01 49 L 96/61 97 08/17/24 10:33 61 104/71 95 08/17/24 10:18 58 L 119/81 98 08/17/24 10:17 97.6 F 63 18 124/83 96 08/17/24 09:55 63 18 127/60 98 08/17/24 09:40 54 L 18 123/68 99 08/17/24 09:25 63 16 157/78 98 08/17/24 09:12 18 96 08/17/24 09:10 62 18 160/96 94 L 08/17/24 08:55 96.8 F L 67 14 141/69 95 08/17/24 08:40 57 L 18 123/68 99 08/17/24 07:22 96.7 F L 75 16 145/73 96 Intake and Output 08/16/24 08/17/24 08/17/24 22:59 06:59 14:59 Intake Total 1550 Balance 1550 Intake: IV 1550 Other: # Voids 1 Weight 75.8 kg 75.8 kg Results CBC & Chem 7: 08/17/24 07:09 Labs: Abnormal Lab Results - Last 24 Hours (Table) 08/17/24 Range/Units 07:09 Hct 47.9 H (34.0-46.0) %
[2024-08-17] MEDS: HYDROcodone/APAP 5-325MG 1 EACH TAB PO PRN (15:06)
[2024-08-18] MEDS: HYDROmorphone 0.5 MG/0.5 ML SYRINGE IVP PRN (04:34)
[2024-08-18] MEDS: LEVOTHYROXINE 125 MCG TAB PO SCH (06:42)
[2024-08-18 10:50] VITALS: BP 153/87; PULSE 69; RESP 17; TEMP 97.9
--- NOTE | 2024-08-18 13:32 | P.PN ---
Subjective Progress Note Date: 08/18/24 64-year-old female is admitted for elective laparoscopic Conchita's fundoplication. Patient is complaining of epigastric abdominal discomfort and burping. Patient denies any fever chills nausea vomiting. 08/18/2024 Patient is evaluated today in follow-up on the medical floor. She is postoperative day #1 elective laparoscopic Niesen fundoplication. Patient is not having any epigastric abdominal discomfort and burping at this time she did have an episode of chest discomfort across her chest wall into her shoulder this morning she states that this type of discomfort comes and goes and she a ssociates it more with stress. It is not happening with exertion. She is not having any associated shortness of breath no dizziness or lightheadedness. She is not having any palpitations. EKG reveals sinus bradycardia with no specific ST or T wave changes. At this time patient states that the chest pain has gone. She is following closely with her PCP Dr. Buckley states that she is scheduled to see a neurologist coming up for a history of brain bleed and has been having intermittent headaches. She is currently not having any headache at the moment. Review of Systems Constitutional: Denied any fatigue denied any fever. Cardio vascular: denied any chest pain, palpitations Gastrointestinal: denied any nausea, vomiting, diarrhea Pulmonary: Denied any shortness of breath cough Neurologic denied any new focal deficits All inpatient medications were reviewed and appropriate changes in these medications as dictated in the interval history and assessment and plan. PHYSICAL EXAMINATION: GENERAL: The patient is alert and oriented x3, not in any acute distress. Well developed, well nourished. HEENT: Pupils are round and equally reacting to light. EOMI. No scleral icterus. No conjunctival pallor. Normocephalic, atraumatic. No pharyngeal erythema. No thyromegaly. CARDIOVASCULAR: S1 and S2 present. No murmurs, rubs, or gallops. PULMONARY: Chest is clear to auscultation, no wheezing or crackles. ABDOMEN: Soft, nontender, nondistended, normoactive bowel sounds. No palpable organomegaly. MUSCULOSKELETAL: No joint swelling or deformity. EXTREMITIES: No cyanosis, clubbing, or pedal edema. NEUROLOGICAL: Gross neurological examination did not reveal any focal deficits. SKIN: No rashes. Assessment and plan -Status post Conchita fundoplication pain management DVT prophylaxis per primary service patient is not having any significant pain today. -Hypothyroidism continue levothyroxine -Gastroesophageal reflux disease patient is status post Conchita's fundoplication continue with PPIs -Hypertension will monitor the blood pressures and has been resumed on home dose of amlodipine -Anxiety -Reported history of brain bleed x 2 and stroke DVT prophylaxis:as per primary service GI prophylaxis Full Code Plan Patient is cleared medically for discharge home when cleared by primary service Patient is currently on clear liquid diet. Continue all same home medications. Recommend to follow up with PCP Dr. José Miguel Buckley this upcoming week. The impression and plan of care has been dictated by Ana Maria Jack Nurse Practitioner as directed. Dr. Ade MD I have performed a history and physical examination and medical decision making of this patient, discussed the same with the dictator, and agree with the dictators assessment and plan as written, documented as a scribe. Based on total visit time, I have performed more than 50% of this visit. Objective - Vital Signs Vital signs: Vital Signs Temp 97.9 F 08/18/24 08:16 Pulse 69 08/18/24 08:16 Resp 17 08/18/24 08:16 BP 153/87 08/18/24 08:16 Pulse Ox 97 08/18/24 08:16 FiO2 Intake & Output 08/17/24 08/18/24 08/18/24 18:59 06:59 18:59 Intake Total 1550 480 Balance 1550 480 Weight 75.8 kg Intake: IV 1550 Oral 480 Other: Voiding Method Toilet Toilet # Voids 1 3 - Labs CBC & Chem 7: 08/17/24 07:09 Assessment and Plan Time with Patient: Less than 30
--- NOTE | 2024-08-18 14:12 | P.DS ---
Providers Date of admission: 08/17/24 06:18 Expected date of discharge: 08/18/24 Attending physician: Morgan Wei Consults: 08/17/24 08:54 Consult Physician Routine Consulting Provider: Nayeli Spears Consult Reason/Comments: med manage Do you want consulting provider notified?: Yes Primary care physician: José Miguel Buckley Hospital Course: Discharge diagnosis 1. GERD and hiatal hernia Hospital course This is a 64-year-old female with a history of GERD and hiatal hernia she is status post laparoscopic Niesen fundoplication with [place] bioabsorbable mesh. Patient is tolerating diet. Her pain is controlled. She is up and ambulating. She is having flatus. She is afebrile. She is stable for discharge. Please refer to chart for any further details. Physician Robotic Maintenance Technician note has been reviewed by physician. Signing provider agrees with the documented findings, assessment, and plan of care. Patient Condition at Discharge: Stable Plan - Discharge Summary Discharge Rx Participant: No New Discharge Prescriptions: New Docusate [Colace] 100 mg PO BID #30 capsule HYDROcodone/APAP 5-325MG [[place]bridge 5-325] 1 tab PO Q6HR PRN 3 Days #12 tab PRN Reason: Pain Continue Omeprazole [PriLOSEC] 60 mg PO QAM Levothyroxine Sodium [Synthroid] 125 mcg PO QAM amLODIPine [Norvasc] 5 mg PO QAM Discharge Medication List Omeprazole [PriLOSEC] 60 mg PO QAM 01/06/18 [History] Levothyroxine Sodium [Synthroid] 125 mcg PO QAM 07/04/19 [History] amLODIPine [Norvasc] 5 mg PO QAM 03/26/23 [History] Docusate [Colace] 100 mg PO BID #30 capsule 08/18/24 [Rx] HYDROcodone/APAP 5-325MG [[place]bridge 5-325] 1 tab PO Q6HR PRN 3 Days #12 tab 08/18/24 [Rx] Follow up Appointment(s)/Referral(s): José Miguel Buckley DO [Primary Care Provider] - 1 Week Morgan Wei MD [STAFF PHYSICIAN] - 2 Weeks Activity/Diet/Wound Care/Special Instructions: No driving while taking [place] No lifting over 10 pounds Shower daily. No soaking or tub baths for 2 weeks Very light activity until you are reevaluated at your follow up appointment with your surgeon Continue a full liquid diet for the next 2 weeks Discharge Disposition: HOME SELF-CARE
== END 2024-08-18 15:16 | disposition home or self-care (01) ==
LOC: OR 06:17 → 4SSUR 06:18 → OR 06:18 → 4SSUR 08:55
PROVIDERS: ADMIT Surgery; ATTEND Surgery
DX: K44.9 Diaphragmatic hernia without obstruction or gangrene (principal); K21.9 Gastro-esophageal reflux disease without esophagitis; I10 Essential (primary) hypertension; E03.9 Hypothyroidism, unspecified; I69.354 Hemiplegia and hemiparesis following cerebral infarction affecting left non-dominant side; M19.90 Unspecified osteoarthritis, unspecified site; H40.9 Unspecified glaucoma; F17.210 Nicotine dependence, cigarettes, uncomplicated; Z79.890 Hormone replacement therapy; Z79.899 Other long term (current) drug therapy; Z88.1 Allergy status to other antibiotic agents; Z88.8 Allergy status to other drugs, medicaments and biological substances; Z86.79 Personal history of other diseases of the circulatory system
CPT/HCPCS: 43282; 93005; 85027; G0378; C1781; J1171 ×3; J1644; J1100; J0690; J2405; J1650; J1885 ×2

== ENCOUNTER → 2024-09-22 | Outpatient (CLI) | payer MEDICARE, OTHER ==
--- NOTE | 2024-09-22 15:29 | MM ---
Reason for Exam: Clinical finding. Last mammogram was performed 2 year(s) and 4 month(s) ago. Indicated Problems: Lump or thickening of the left side for 2 Month(s). Pain of both sides (Global) for 2 Month(s). Patient History: Menarche at age 15. First Full-Term at age 19. Left ovary removed at age 42. Right ovary removed at age 42. Hysterectomy at age 42. Postmenopausal. 1996, Bilateral Implants. Paternal grandmother had breast cancer under age 50. Risk Values: Marielos 5 year model risk: 1.1%. NCI Lifetime model risk: 4.3%. Prior Study Comparison: 06/17/2022 Bilateral MG 3D screen mammo imp/cad., [facility]. Tissue Density: The breasts are heterogeneously dense, which may obscure small masses. Findings: Bilateral prepectoral saline implants are noted. Since 2021, the left implant is noted to be collapsed now. There is overlying palpable marker on the left. Nodular areas of asymmetric density central posterior right breast; on the MLO view located both superior and inferiorly remain unchanged. Otherwise, no significant change from prior exams. Overall Assessment: Incomplete: need additional imaging evaluation, BI-RAD 0 Management: Diagnostic Breast Ultrasound of the left breast. [facility], , 09/22/2024 3:26 PM. Electronically signed and approved by: Haylee Mora M.D. Radiologist
--- NOTE | 2024-09-22 16:00 | USB ---
Reason for Exam: Clinical finding. Patient History: Menarche at age 15. First Full-Term at age 19. Left ovary removed at age 42. Right ovary removed at age 42. Hysterectomy at age 42. Postmenopausal. 1996, Bilateral Implants. Paternal grandmother had breast cancer under age 50. Risk Values: Marielos 5 year model risk: 1.1%. NCI Lifetime model risk: 4.3%. Technique: Method: Targeted. Prior Study Comparison: 06/17/2022 Bilateral MG 3D screen mammo imp/cad., [facility]. Findings: The lower inner quadrant of the left breast, the axilla of the left breast and the retroareolar of the left breast were scanned. Ultrasound upper inner quadrant left breast 9:00 to 12:00 including scanning of the subareolar region and axilla. This targeted region corresponds to the site of patient's pain. Underlying collapsed breast implant is noted. Otherwise, no solid or cystic lesion or axillary lymphadenopathy. Overall Assessment: Benign, BI-RAD 2 Management: Screening Mammogram of both breasts in 1 year. Surgical Consultation of the left breast. Recommend surgical evaluation for patient symptomatic/painful ruptured left breast saline implant. A clinical breast exam by your physician is recommended on an annual basis and results should be correlated with mammographic findings. This exam should not preclude additional follow-up of suspicious palpable abnormalities. Results were given to the patient verbally at the time of exam. [facility], , 09/22/2024 3:57 PM. Electronically signed and approved by: Haylee Mora M.D. Radiologist
== END | disposition home or self-care (01) ==
LOC: RADMAMWWP 14:33
PROVIDERS: ATTEND Family Medicine
DX: N64.4 Mastodynia (principal); Z90.722 Acquired absence of ovaries, bilateral; Z78.0 Asymptomatic menopausal state; Z80.3 Family history of malignant neoplasm of breast; R92.333 Mammographic heterogeneous density, bilateral breasts; Z98.82 Breast implant status
CPT/HCPCS: 77066; 76642; G0279; 77062